=== PATIENT | female | born 1945 | race Caucasian/White ===

== ENCOUNTER → 2024-03-13 | Outpatient (CLI) | payer MEDICARE, BC, SELFPAY ==
[2024-03-13 10:19] LABS: Basophils % (Auto) 0 % (0-2.5); Eosinophils # (Auto) 0.1 Thou/mm3 (0.0-0.5); Eosinophils % (Auto) 2 % (0-10); Hematocrit 40.1 % (36.0-46.0); Hemoglobin 13.7 g/dL (12.0-16.0); Immature Granulocytes % (Auto) 0 % (0-0); Immature Granulocytes Auto 0.03 Thou/mm3 (0.00-0.00); Lymphocytes # (Auto) 2.3 Thou/mm3 (1.0-4.8); Lymphocytes % (Auto) 32 % (10-50); Mean Corpuscular HGB Conc 34.2 g/dl (31.0-37.0); Mean Corpuscular Hemoglobin 32.4 pg (25.0-35.0); Mean Corpuscular Volume 95 fL (80-100); Monocytes # (Auto) 0.6 Thou/mm3 (0.0-0.8); Monocytes % (Auto) 8 % (0-12); Neutrophils # (Auto) 4.2 Thou/mm3 (1.8-7.7); Neutrophils % (Auto) 59 % (37-80); Nucleated Red Blood Cell % 0 /100 WBC (0); Platelet Count 172 Thou/mm3 (140-440); RDW Standard Deviation 46.1 fL (36.4-46.3); Red Blood Count 4.23 Miln/mm3 (4.00-5.20); White Blood Count 7.2 Thou/mm3 (3.6-11.0)
[2024-03-13 10:59] LABS: Vitamin B12 704 pg/mL (211-911); Vitamin D 25 Hydroxy Total 51.3 ng/mL (7.3-40.2)
[2024-03-13 11:04] LABS: Alanine Aminotransferase 22 U/L (10-49); Albumin, Serum 4.6 gm/dL (3.4-4.8); Albumin/Globulin Ratio 1.9 (1.2-2.2); Alkaline Phosphatase 128 U/L (46-116); Anion Gap 5 (7-16); Aspartate Amino Transferase 19 U/L (0-34); BUN/Creatinine Ratio 16 Ratio (12-20); Bilirubin,Total 0.6 mg/dL (0.3-1.2); Blood Urea Nitrogen 13 mg/dL (9-23); Calcium 9.6 mg/dL (8.3-10.6); Calcium (Corrected) 9.6 mg/dL (8.5-10.1); Carbon Dioxide 29.6 mMol/L (20.0-31.0); Cardiac Risk Estimate 3.7 RATIO (3.7-5.6); Chloride 105 mMol/L (98-107); Cholesterol 198 mg/dL (132-200); Creatinine (Component) 0.8 mg/dL (0.6-1.3); Globulin 2.4 gm/dL (2.3-3.5); Glucose 94 mg/dL (74-106); HDL Cholesterol 53 mg/dL (40-60); LDL Cholesterol,Calculated 117 mg/dL (0-130); Osmolality,Calculated 279 (275-295); Potassium 3.7 mMol/L (3.4-5.1); Sodium 140 mMol/L (136-145); Thyroid Stimulating Hormone 2.71 uIU/mL (0.55-4.78); Triglycerides 141 mg/dL (30-150); eGFR > 60 See Note
[2024-03-13 11:19] LABS: Collection Type, Urine Clean Catch
[2024-03-13 11:48] LABS: Bilirubin,Urine Negative (Negative); Blood,Urine Negative (Negative); Clarity,Urine Clear (Clear/Hazy); Color,Urine Lt-Yellow (Lt Yel-Yel); Culture Indicated,Urine Not Indicated; Glucose, Urine Negative (Negative); Ketones,Urine Negative (Negative); Leukocyte Esterase,Urine Negative (Negative); Nitrite,Urine Negative (Negative); Protein,Urine Negative (Neg - Trace); RBC,Urine 1 /hpf (0-3); Specific Gravity,Urine 1.013 (1.001-1.035); Squamous Epithelial Cell,Urine 1 /hpf (0-5); Urobilinogen,Urine Negative mg/dL (0.0-1.0); WBC,Urine 1 /hpf (0-5)
== END | disposition home or self-care (01) ==
LOC: COPL 09:44
PROVIDERS: PCP Family Medicine; Referring Provider Physician Assistant; Visit Provider Physician Assistant
DX: E03.9 Hypothyroidism, unspecified (principal); I10 Essential (primary) hypertension; E78.5 Hyperlipidemia, unspecified; E55.9 Vitamin D deficiency, unspecified
CPT/HCPCS: 36415; 80053; 80061; 81001; 82306; 82607; 84443; 85025

== ENCOUNTER → 2024-03-14 | Outpatient (CLI) | payer MEDICARE, BC, SELFPAY ==
[2024-03-19 06:54] LABS: Fecal Globin Result NOT DETECTED (NOT DETECTED)
== END | disposition home or self-care (01) ==
LOC: SLDO 09:55
PROVIDERS: PCP Physician Assistant; Referring Provider Physician Assistant; Visit Provider Physician Assistant
DX: E03.9 Hypothyroidism, unspecified (principal); I10 Essential (primary) hypertension; E78.5 Hyperlipidemia, unspecified; E55.9 Vitamin D deficiency, unspecified
CPT/HCPCS: 82274; G0328

== ENCOUNTER → 2024-04-03 | Outpatient (CLI) | payer MEDICARE, BC, SELFPAY ==
--- NOTE | 2024-04-03 10:35 | XR_ITS ---
Examination: Lumbar spine, 5 views Technique: Lumbar spine AP, lateral, coned lateral lower lumbar spine, bilateral obliques 5 views Exam date and time: April 03, 2024 1059 hrs. Comparison May 05, 2017 Indications: Low back pain radiating to the right hip beginning one week ago Findings: Lumbar dextroscoliosis 15 degrees Significant osteopenia Total right hip arthroplasty partly visualized satisfactory alignment Diffuse advanced facet arthropathy No lumbar fracture Diffuse lumbar degenerative disc disease advanced L4-L5 No spondylolisthesis Impression: Lumbar dextroscoliosis 15 degrees Diffuse lumbar degenerative disc disease, advanced L4-L5
--- NOTE | 2024-04-03 10:35 | XR_ITS ---
Examination:Right hip AP, lateral, AP pelvis 3 views Technique: Hip AP lateral, AP pelvis, 3 views Exam date and time:April 03, 2024 1059 hrs. Comparison May 05, 2017 Indications: Right hip and lower back pain beginning one week ago. Findings: Total right hip arthroplasty Satisfactory alignment No loosening of the prosthetic components No prosthetic hip dislocation Mild left hip osteoarthritis Bones of the pelvis intact Impression: Total right hip arthroplasty with satisfactory alignment
== END | disposition home or self-care (01) ==
LOC: CDIM 10:22
PROVIDERS: PCP Family Medicine; Referring Provider Physician Assistant; Visit Provider Physician Assistant
DX: M41.86 Other forms of scoliosis, lumbar region (principal); M51.369 Other intervertebral disc degeneration, lumbar region without mention of lumbar back pain or lower extremity pain; Z96.641 Presence of right artificial hip joint
CPT/HCPCS: 72110; 73502

== ENCOUNTER → 2024-04-16 | Outpatient (CLI) | payer MEDICARE, BC, SELFPAY ==
--- NOTE | 2024-04-16 09:00 | XR_ITS ---
Examination: Breast ultrasound complete, bilateral Date and time of exam: April 16, 2024 0925 hours INDICATIONS: History right breast stereotactic breast biopsy January 21, 2020, negative for carcinoma, yearly screening study, right breast sonogram April 13, 2023 12:00 nodule 6 x 5 mm Technique: Real-time grayscale ultrasonographic imaging bilateral breasts, including all 4 quadrants as well as nipple retroareolar and axillary regions. Findings: Right breast sonographic images 12:00 oval mass lobular margins circumscribed 8 x 4 x 7 mm Sonographic images left breast No cystic or solid mass IMPRESSION: BI-RADS Category 2: Benign findings
--- NOTE | 2024-04-16 10:00 | XR_ITS ---
Examination: Screening digital mammography, bilateral Computer aided detection 3-D breast Tomosynthesis, bilateral Date and time of exam: April 16, 2024 0944 hours Compared to mammograms dating to January 14, 2020 Indication: Screening Technique: Nonmagnified MLO, CC views of the breasts to been obtained, reconstructed from 3-D Tomosynthesis images. R2 computer aided detection program utilized for evaluation of suspicious masses and/or abnormal calcifications. 3-D Tomosynthesis images obtained. Findings: The breasts are heterogeneously dense, which may obscure small masses Bilateral skin lesions Benign calcifications 6 mm focal asymmetry 12:00 position right breast anterior depth Impression: BI-RADS Category 0: Incomplete: Need additional imaging evaluation 6 mm focal asymmetry 12:00 position right breast anterior depth, recommend follow-up spot tomographic views of this asymmetry Recommend bilateral breast sonography follow-up to complete the workup
== END | disposition home or self-care (01) ==
LOC: CDIM 09:03
PROVIDERS: PCP Family Medicine; Referring Provider Physician Assistant; Visit Provider Physician Assistant
DX: Z12.31 Encounter for screening mammogram for malignant neoplasm of breast (principal); N64.89 Other specified disorders of breast
CPT/HCPCS: 76641; 77063; 77067

== ENCOUNTER → 2024-04-16 | Outpatient (CLI) | payer MEDICARE, BC, SELFPAY ==
--- NOTE | 2024-04-16 17:02 | XR_ITS ---
Examination: MRI lumbar spine without contrast Date and time of exam: April 16, 2024 1755 hours Comparison May 18, 2019 INDICATIONS: Low back pain 10 years worse beginning March 17, 2024 Technique: Multiple MRI axial and sagittal sections lumbar spine. Sagittal T2-weighted images, TR 3500, TE 118 T1 weighted transverse sections, TR 688 T8.5, T2-weighted sagittal sections T1 weighted sagittal sections TR 621, TE 30 T2 axial sections, TR 4, 190, TE 84. Findings: Statistician Applied film upper lumbar dextroscoliosis 15 degrees short angle lower lumbar scoliosis 15 degrees Advanced disc narrowing L4-L5 Adequate marrow signal lumbar vertebral bodies Diffuse lumbar disc desiccation L5-S1 3 mm right paracentral disc bulge L4-L5 7 mm central lumbar disc bulge extending to the right foraminal region with moderate right L4 ganglionic compression L3-L4 foraminal disc bulges but no ganglionic compression L2-L3 no disc protrusion L1-L2 3 mm right paracentral disc bulge IMPRESSION: Scoliosis as above L5-S1 3 mm right paracentral disc bulge L4-L5 7 mm central lumbar disc bulge extending to the right foraminal region with moderate right L4 ganglionic compression L1-L2 3 mm right paracentral disc bulge
== END | disposition home or self-care (01) ==
LOC: SMRI 16:46
PROVIDERS: PCP Family Medicine; Referring Provider Physician Assistant; Visit Provider Orthopaedic Surgery Orthopaedic Surgery of the Spine
DX: M41.86 Other forms of scoliosis, lumbar region (principal); M41.87 Other forms of scoliosis, lumbosacral region; G95.20 Unspecified cord compression
CPT/HCPCS: 72148

== ENCOUNTER → 2024-04-18 | Outpatient (CLI) | payer MEDICARE, BC, SELFPAY ==
--- NOTE | 2024-04-18 08:00 | XR_ITS ---
Examination: Diagnostic digital mammography, unilateral, right Computer aided detection 3-D breast Tomosynthesis, unilateral Date and time of exam: April 18, 2024 0749 hours INDICATIONS: Mammogram April 16, 2024 6 mm focal asymmetry 12:00 position right breast anterior depth Technique: Nonmagnified MLO, CC views of the right breast have been obtained, reconstructed from 3-D Tomosynthesis images. R2 computer aided detection program utilized for evaluation of suspicious masses and/or abnormal calcifications. 3-D Tomosynthesis images obtained. Findings: The breast is heterogeneously dense, which may obscure small masses 5 mm nodule upper right breast on the MLO view circumscribed Impression: BI-RADS category 3: Probably benign findings Recommend 1 additional 6 month right mammogram follow-up to document stability of 5 mm nodule upper right breast MLO view
== END | disposition home or self-care (01) ==
PROVIDERS: Referring Provider Physician Assistant; Visit Provider Physician Assistant
DX: N63.10 Unspecified lump in the right breast, unspecified quadrant (principal)
CPT/HCPCS: 77061; 77065; G0279

== ENCOUNTER → 2024-07-27 | Outpatient (CLI) | payer MEDICARE, BC, SELFPAY ==
--- NOTE | 2024-07-27 13:30 | XR_ITS ---
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
[2024-07-27 14:32] LABS: Free T4 (Free Thyroxine) 1.59 ng/dL (0.89-1.76); Thyroid Stimulating Hormone 1.19 uIU/mL (0.55-4.78)
== END | disposition home or self-care (01) ==
LOC: CDIM 13:07
PROVIDERS: PCP Family Medicine; Referring Provider Internal Medicine Endocrinology, Diabetes & Metabolism; Visit Provider Internal Medicine Endocrinology, Diabetes & Metabolism
DX: E04.1 Nontoxic single thyroid nodule (principal); E06.3 Autoimmune thyroiditis
CPT/HCPCS: 36415; 76536; 84439; 84443

== ENCOUNTER → 2024-11-15 | Outpatient (CLI) | payer MEDICARE, BC, SELFPAY ==
--- NOTE | 2024-11-15 11:30 | XR_ITS ---
Examination: Diagnostic digital mammography, unilateral, right Computer aided detection 3-D breast Tomosynthesis, unilateral Date and time of exam: November 15, 2024 1104 hours INDICATIONS: Mammogram April 18, 2024 5 mm nodule upper right breast on the MLO view Technique: Nonmagnified MLO, CC views of the right breast have been obtained, reconstructed from 3-D Tomosynthesis images. R2 computer aided detection program utilized for evaluation of suspicious masses and/or abnormal calcifications. 3-D Tomosynthesis images obtained. Findings: The breast is heterogeneously dense, which may obscure small masses On this study there is architectural distortion in the inner lower right breast measuring at least 20 mm Impression: BI-RADS category 0: Incomplete: Need additional imaging evaluation Recommend follow-up spot tomographic views centered more toward the inferior lower right breast, not included on the current spot compression views as well as right breast sonography to complete the workup
== END | disposition home or self-care (01) ==
LOC: CDIM 10:55
PROVIDERS: Referring Provider Physician Assistant; Visit Provider Physician Assistant
DX: R92.8 Other abnormal and inconclusive findings on diagnostic imaging of breast (principal)
CPT/HCPCS: 77061; 77065; G0279

== ENCOUNTER → 2024-12-11 | Outpatient (CLI) | payer MEDICARE, BC, SELFPAY ==
--- NOTE | 2024-12-11 13:00 | XR_ITS ---
Examination: Breast ultrasound, unilateral, right Date and time of exam: December 11, 2024 1344 hours INDICATIONS: Mammogram November 15, 2024 architectural distortion inner lower right breast, 20 mm Technique: Real-time shahid scale ultrasonographic imaging performed right breast including all 4 quadrants as well as nipple retroareolar and axillary region. Findings: 12:00 nodule lobular margins 10 x 5 mm IMPRESSION: BI-RADS Category 3: Probably benign findings One additional 6 month right breast sonogram follow-up is needed to document stability of 12:00 nodule described above
--- NOTE | 2024-12-11 13:30 | XR_ITS ---
Examination: Diagnostic digital mammography, unilateral, right Computer aided detection 3-D breast Tomosynthesis, unilateral Date and time of exam: December 11, 2024 1557 hours INDICATIONS: Mammogram November 15, 2024 architectural distortion inner lower right breast Technique: Nonmagnified MLO, CC views of the right breast have been obtained, reconstructed from 3-D Tomosynthesis images. R2 computer aided detection program utilized for evaluation of suspicious masses and/or abnormal calcifications. 3-D Tomosynthesis images obtained. Findings: The breast is heterogeneously dense, which may obscure small masses Focal asymmetry does remain inner right breast on the spot compression views Impression: BI-RADS category 3: Probably benign findings One additional 6 month right mammogram follow-up is needed to document stability of focal asymmetry inner right breast on the spot compression CC view
== END | disposition home or self-care (01) ==
LOC: CDIM 13:16
PROVIDERS: PCP Family Medicine; Referring Provider Family Medicine; Visit Provider Family Medicine
DX: R92.331 Mammographic heterogeneous density, right breast (principal); N64.89 Other specified disorders of breast; N63.15 Unspecified lump in the right breast, overlapping quadrants
CPT/HCPCS: 76641; 77061; 77065; G0279

== ENCOUNTER 2025-01-28 22:41 | Inpatient (IN) | payer MEDICARE, BC, SELFPAY ==
[2025-01-28 22:42] VITALS: BMI 31.6
--- NOTE | 2025-01-28 22:48 | EKG_ITS ---
[facility] Test Date: 2025-01-28 Pat Name: MONSE BLANCHARD Department: Room: - Gender: Female Heel Breaster: : 1945 Requested By: ED Temporary Provider Order Number: [id number] Reading MD: ED Temporary Provider Measurements Intervals [place] Rate: 82 P: 63 UT: 165 QRS: 16 QRSD: 94 T: 75 QT: 362 QTc: 425 Interpretive Statements SINUS RHYTHM WITH OCCASIONAL VENTRICULAR PREMATURE COMPLEXES POSSIBLE LEFT ATRIAL ENLARGEMENT [-0.1mV P-WAVE IN V1/V2] NONSPECIFIC ST & T-WAVE ABNORMALITY No previous ECG available for comparison /store/S0/[id number]/ecg/[id number].pdf
[2025-01-28 22:56] VITALS: BP 205/125; PULSE 88; RESP 17; TEMP 36.7; O2SAT 96
--- NOTE | 2025-01-28 23:15 | XR_ITS ---
EXAMINATION: AP chest single view TECHNIQUE: AP portable upright chest single view Date and time: January 29, 2025, 0004 hours, comparison [facility] 2019 INDICATIONS: Stroke alert, today FINDINGS: Accentuation of basilar bronchovascular markings No aspiration pneumonia Stable nodule left midlung compared to June 01, 2019 Mild prominence left ventricle No pulmonary edema Prominent osteopenia IMPRESSION: Basilar bronchitis pattern Negative for aspiration pneumonia
--- NOTE | 2025-01-28 23:15 | PD.EDNEURO ---
Neuro Symptoms Deficit-RME/HPI General Chief Complaint: Neuro Symptoms/Deficit Stated Complaint: RIGHT SIDE WEAKNESS Time Seen by Provider: 01/28/25 23:15 Arrival date/time: 01/28/25 22:41 RME / HPI RME / HPI Narrative: DR. LEARY MAIN ED EVALUATION: 79 y/o female presenting with episodic right UE/LE wekaness lasting 30-60 minutes, initial episode at 3:30 PM today and most recent episode just MORTGAGE ADVISOR. Denies any associated visual disturbance, confusion, arthralgia or LANGFORD. No antecedent illness. No previous symptoms. No modifying factors. PMH: PVC's, HTN, and Hypothyrodism PSH: Orthopedic Sx of right hip, BL knees, and benign right renal mass excision Allergies: None Social: Non-smoker, Non-drinker, No illicit drug use Related Data Home Medications ?Medication ?Instructions ?Recorded ?Confirmed hydrochlorothiazide 12.5 mg tablet 12.5 mg PO QDAY 07/04/18 01/18/20 fluticasone furoate 100 1 inh inhalation QDAY 01/18/20 01/18/20 mcg-vilanterol 25 mcg/dose inhalation powder levothyroxine 100 mcg tablet 100 mcg PO QDAY 01/18/20 01/18/20 (Synthroid) lisinopril 5 mg tablet 5 mg PO QDAY 01/18/20 01/18/20 Allergies Allergy/AdvReac Type Severity Reaction Status Date / Time NKA* Allergy Uncoded 01/28/25 23:11 Review of Systems Review of Systems Systems Reviewed: All systems reviewed, normal except as documented Past Medical History Past Medical History CARDIAC: Positive Hypertension ENDOCRINE: Positive Hypothyroidism ED Exam Narrative Physical exam: GEN. APPEARANCE: The patient is alert awake oriented X-3 under no distress, lying down comfortably, does not look ill/toxic. Patient has good eye contact. Patient is cooperative. NIH score 0, GCS 15, notably hypertensive. VITALS: All vitals were reviewed and the pulse ox is 98%, which is normal according to my interpretation HEENT: Normocephalic, atraumatic and nontender. Pupils are equal and reactive. Oral mucosa is moist. NECK: Supple, nontender, no meningismus, no JVD. There is no thyromegaly and no lymphadenopathy. CHEST: Nontender on palpation no deformity and no crepitus. CARDIOVASCULAR: Heart regular rhythm, no murmur or gallop rub or extra beats. LUNGS: Clear to auscultation bilaterally with symmetrical chest rise. No laboring tachypnea or wheezing. No intercostal subcostal retraction. No rales and no rhonchi. ABDOMEN: Soft, flat, nontender to palpation, no guarding or rebound tenderness. There are no abnormal masses palpated. No pulsatile masses or bruits. Active and normal bowel sounds. EXTREMITIES: Normal inspection and palpation. No edema. No cyanosis. Patient is able to move all 4 extremities well SKIN: Warm and dry, no rashes noted. MUSCULOSKELETAL: No lumbar or midline bony tenderness. There is no CVA tenderness. No paraspinal muscle spasm or tenderness. NEURO: Cranial nerves II through XII grossly intact. There are no focal neurologic deficits noted. GCS is 15. Normal finger to nose, visual monsalve intact, gait not observed. PSYCHIATRIC: Patient is in normal mood and affect, cooperative. LYMPHATICS: No major lymphadenopathy noted. Course Quality Measures none Orders Category Date Time Status Bedside Blood Glucose NOW Care 01/28/25 23:[address] Screening NOW Care 01/28/25 23:21 Active Lead Performance Support Analyst NOW Care 01/28/25 23:15 Active Continuous Pulse Oximetry NOW Care 01/28/25 23:15 Completed EKG (ED ONLY) *Do not use* NOW Care 01/28/25 22:49 Completed EKG (ED ONLY) *Do not use* NOW Care 01/28/25 23:15 Completed Fingerstick [Bedside Blood Glucose] NOW Care 01/28/25 22:49 Active In and Out Catheter NEEDED Care 01/28/25 23:15 Active Insert IV NOW Care 01/28/25 22:59 Active Insert IV NOW Care 01/28/25 23:15 Completed NIH Stroke Scale now Care 01/28/25 23:15 Completed NPO NOW Care 01/28/25 23:15 Active Neuro Check Q1HR Care 01/28/25 23:16 Active Nurse Swallow Screen x1 Care 01/28/25 23:15 Active Consult to Neurology / Tele-Neurology Routine Cons 01/28/25 23:[address] angio carotid w head w Stat Exams 01/28/25 23:[address] head/brain wo con Stat Exams 01/28/25 23:21 Completed EKG (ED Only) Stat Exams 01/28/25 22:48 Draft EKG (ED Only) Stat Exams 01/28/25 23:15 Ordered XR chest 1V portable Stat Exams 01/28/25 23:15 Taken CBC Stat Lab 01/28/25 23:20 Completed Comprehensive Metabolic Panel Stat Lab 01/28/25 23:20 Completed Drug Screen,Urine Stat Lab 01/28/25 23:38 Completed Magnesium Stat Lab 01/28/25 23:20 Completed Partial Thromboplastin Time Stat Lab 01/28/25 23:20 Completed Prothrombin Time with INR Stat Lab 01/28/25 23:20 Completed Troponin I Stat Lab 01/28/25 23:20 Completed Urinalysis, C/S if Indicated Stat Lab 01/28/25 23:38 Completed Aspirin Med 01/29/25 02:07 Discontinued 325 mg PO X1 ONE Labetalol IV [Trandate IV] Med 01/28/25 23:15 Discontinued 10 mg IVP Q15M PRN Labetalol IV [Trandate IV] Med 01/28/25 23:10 Discontinued 10 mg IVP X1 ONE Ondansetron Inj [Zofran Inj] Med 01/28/25 23:15 Active 4 mg IVP Q4HR PRN Sodium Chloride 0.9% 1000 ml [Ns] 1,000 ml Med 01/28/25 23:15 Active IV .Q10H hydrALAZINE INJ [Apresoline Inj] Med 01/29/25 02:08 Discontinued 10 mg IVP X1 ONE Oxygen Delivery NOW RT 01/28/25 23:15 Active Vital Signs Vital signs: Vital Signs Temperature 98.1 F 01/28/25 22:56 Pulse Rate 88 01/28/25 22:56 Respiratory Rate 17 01/28/25 22:56 Blood Pressure 205/125 H 01/28/25 22:56 Pulse Oximetry (%) 96 01/28/25 22:56 Oxygen Delivery Method Room Air 01/28/25 22:56 Neuro Symptoms / Deficit MDM Narrative MDM Narrative:: Scribe Attestation: ITanesha am scribing for and in the presence of Dr. Leary. Provider Notation: Although this document has been carefully reviewed, there may still be some phonetic and other typographical errors. These errors are purely grammatical due to imperfections in the software program and should not be construed in any way to compromise the substance of the patient's medical care during this visit. 79 y/o female presenting with episodic right UE/LE wekaness lasting 30-60 minutes, initial episode at 3:30 PM today and most recent episode just MORTGAGE ADVISOR. Denies any associated visual disturbance, confusion, arthralgia or LANGFORD. Please see PE findings. Laboratory markers, including CBC and serum chemistries, demonstrate WBC of 10.7, no anemia or thrombocytopenia. Serum chemistries were essentially unremarkable. UA without evidence of infection. Toxicology was positive for opiates. Placed on hebrew teacher, patient was entered into stroke protocol, IV hypertensive therapy, upon return from scanner patient remained neurologically unchanged. 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 Administered full dose ASA. Patient will be admitted to hospital service for further evalutation and treatment. Patient data External records reviewed:: [facility] previous records (No prior ED records available for review) Clinical information provided by:: patient Social determinants that could affect healthcare access:: none Patient has the following chronic illnesses:: Hypertension, Hypothyroidism How is presenting disease/condition affected by chronic disease/condition?: exacerbated by Evaluation data The following diagnostics were reviewed and interpreted by me:: lab results, radiology exam(s) and EKG tracing(s) (EKG demonstrates sinus rhythm with ventricular rate of [address] segment changes, with occasional PVC's, axis leftward, and intervals are normal, per my interpretation.) Lab and/or radiology exams considered but not ordered:: None Interpretation Summary: RADIOLOGY Head/Neck CTA: Findings: No significant common carotid carotid bifurcation or internal carotid artery stenoses Mildly dominant left vertebral artery, 80% stenosis proximal right vertebral artery axial image 190 Intracranial vertebral arteries, basilar artery posterior cerebral branches fill with no large vessel occlusions Petrous juxtasellar portions internal carotid arteries fill No large vessel occlusions involving M1 segments middle cerebral arteries middle cerebral artery trifurcation vessels or anterior cerebral arteries IMPRESSION: No significant carotid arterial stenoses in the neck Suspicion for 80% stenosis proximal right vertebral artery, consider carotid vertebral Doppler sonography follow-up to assess for retrograde flow in the right vertebral artery No cerebral large vessel arterial occlusions or thrombus Head/Brain CT: Findings: No significant ventricular enlargement. 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 No mass effect or midline shift Basal cisterns are not remarkable. Fourth ventricle is midline. Cranial vault intact. Impression: Negative for acute hemorrhage, mass effect or midline shift Left basal ganglia infarct, which may be old, clinical correlation advised As clinically warranted, brain MRI follow-up would best assess for acute ischemic change Chest X-Ray: Pending official radiology report. Medications / Prescriptions Medications or Prescriptions considered but not ordered:: None Medication administrations:: Medication Administration History Sodium Chloride (Ns) 1,000 mls @ 100 mls/hr IV .Q10H HUGO Stop: 02/27/25 23:14 Last Admin: 01/29/25 00:04 Dose: 100 mls/hr Documented By: AL Ondansetron HCl (Ondansetron Inj 2 Mg/Ml Inj 2 Ml) 4 mg IVP Q4HR PRN PRN Reason: NAUSEA OR VOMITING Stop: 02/27/25 23:14 Discontinued Medications Aspirin (Aspirin 325 Mg Tablet) 325 mg PO X1 ONE Stop: 01/29/25 02:08 Last Admin: 01/29/25 02:13 Dose: 325 mg Documented By: AL Hydralazine HCl (Hydralazine Inj 20 Mg/Ml Vial) 10 mg IVP X1 ONE Stop: 01/29/25 02:09 Last Admin: 01/29/25 02:13 Dose: 10 mg Documented By: AL Labetalol HCl (Labetalol Inj 5 Mg/Ml Vial 20 Ml) 10 mg IVP X1 ONE Stop: 01/28/25 23:11 Last Admin: 01/29/25 00:04 Dose: 10 mg Documented By: AL Labetalol HCl (Labetalol Inj 5 Mg/Ml Vial 20 Ml) 10 mg IVP Q15M PRN PRN Reason: HYPER See above if any Consultations Consultation(s) initiated? (list below): Yes Consultation #1 (Physician, Specialty, Details): Discussed with Hospitalist for admission. Reviewed the patient?s HPI, PMHx, lab and/or radiology results. Discussed treatment plan. Will accept patient for admission. Time: 02:29 Diagnosis Neuro Differential Diagnosis: convulsions, delirium, subarachnoid hemorrhage, peripheral neuropathy, cerebrovascular accident, multiple sclerosis and transient cerebral ischemia Most likely diagnosis given after review of the tests above:: Stuttering TIA Admission Indicated Admission indicated?: indicated Explain why admission is indicated or not indicated:: Stuttering TIA Admission Request Was there a request for admission?: Yes Admission Attestation Admission request attestation: Discussed case with [] from Hospitalist service regarding admission. Discussed patients ED course, exam findings, labs, and radiology results. The Hospitalist [agrees,declines] to accept the patient for admission. Disposition Plan Disposition Plan: Admit Critical Care Time Critical Care Time Critical Care Time: Yes Total Critical Care Time (min.): 45 Attestation: The high probability of sudden, clinically significant deterioration in the patient?s condition required the highest level of my preparedness to intervene urgently. The services I provided to this patient were to treat and/or prevent clinically significant deterioration. Services included the following: chart data review, reviewing nursing notes and/or old charts, documentation time, forestry consultant collaboration regarding findings and treatment options, medication orders and management, direct patient care, vital sign assessments and ordering, interpreting and reviewing diagnostic studies and lab tests. Aggregate critical care time includes only time during which I was engaged in work directly related to the patient?s care, as described above, whether at bedside or elsewhere in the Emergency Department. It did not include time spent performing other reported procedures or the services of residents, students, nurses or physician assistants. Discharge Plan Plan Patient Disposition: Admit Acute Care w/in Hospital Prescriptions/Referrals Prescriptions/Med Rec: No Action hydrochlorothiazide 12.5 mg tablet 12.5 mg PO QDAY levothyroxine [Synthroid] 100 mcg Tablet 100 mcg PO QDAY lisinopril 5 mg Tablet 5 mg PO QDAY fluticasone furoate-vilanterol 100-25 mcg/dose Blister With Device 1 inh INHALATION QDAY Problem List Clinical Impression: TIA (transient ischemic attack) Patient/Caregiver Discharge Instructions Print Language: Nepali Stand Alone Forms: Ivette Award Info., Patient Portal Info Letter
[2025-01-28 23:18] VITALS: PULSE 79; RESP 17; RESP 95
--- NOTE | 2025-01-28 23:21 | XR_ITS ---
Examination: CTA carotids with intravenous contrast CTA brain, head with intravenous contrast. 2-D sagittal, coronal reconstructions. 3-D reconstructions. Exam date and time: January 28, 2025, 11:40 p.m. INDICATIONS: Onset right-sided body weakness today CTDI: vol (mGy) 11.6 DLP: (mGycm) 439 Technique: Multiple CTA axial brain, head carotid images post intravenous contrast injection 75 cc, [id number]. 2-D sagittal, coronal reconstructions. 3-D reconstructions, 3-D post processing including vascular maximum intensity projection images. Low dose protocols were performed. One or more of the following dose reduction techniques were used; automated exposure control, adjustment of the mA and/or KV according to patient size, use of iterative reconstruction technique. Findings: No significant common carotid carotid bifurcation or internal carotid artery stenoses Mildly dominant left vertebral artery, 80% stenosis proximal right vertebral artery axial image 190 Intracranial vertebral arteries, basilar artery posterior cerebral branches fill with no large vessel occlusions Petrous juxtasellar portions internal carotid arteries fill No large vessel occlusions involving M1 segments middle cerebral arteries middle cerebral artery trifurcation vessels or anterior cerebral arteries IMPRESSION: No significant carotid arterial stenoses in the neck Suspicion for 80% stenosis proximal right vertebral artery, consider carotid vertebral Doppler sonography follow-up to assess for retrograde flow in the right vertebral artery No cerebral large vessel arterial occlusions or thrombus
--- NOTE | 2025-01-28 23:21 | XR_ITS ---
Examination: CT brain head without contrast. 2-D sagittal coronal reconstructions Date and time of exam: January 28, 2025 11:40 a.m. INDICATIONS: Onset right-sided body weakness beginning 1530 hours today CTDI: vol (mGy): 45.9 DLP: (mGycm): 862 Technique: Multiple CT axial sections of the brain have been obtained, 5 mm slice thickness. Contrast has not been administered. 2-D sagittal, coronal reconstructions have been obtained Low dose protocols were performed. One or more of the following dose reduction techniques were used; automated exposure control, adjustment of the mA and/or KV according to patient size, use of iterative reconstruction technique. Findings: No significant ventricular enlargement. 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 No mass effect or midline shift Basal cisterns are not remarkable. Fourth ventricle is midline. Cranial vault intact. Impression: Negative for acute hemorrhage, mass effect or midline shift Left basal ganglia infarct, which may be old, clinical correlation advised As clinically warranted, brain MRI follow-up would best assess for acute ischemic change
[2025-01-28 23:23] VITALS: PULSE 77
--- NOTE | 2025-01-28 23:25 | PC.NURSE ---
PT BROUGHT IN BY SISTER FOR NEW ONSET OF RIGHT SIDE WEAKNESS STARTING 01/28/2025 APPROX AT 1500. PT STATES SHE WAS LAYING IN HER RECLINER WHEN SHE WAS GOING TO GO TO RESTROOM AND DEVELOPED RIGHT ARM WEAKNESS. PT THE ATTEMPTED TO GET UP AND STATES HER RIGHT LEG WAS DRAGGING . THEN SHE HAD A SIMILAR EPISODE AROUND 1999. APPROX AT 2200 SHE CALLED SISTER TO TAKE HER TO ER. THIS RN COMPLETED NIHSS WITH PROVIDER AT BEDSIDE.
[2025-01-28 23:29] LABS: Basophils # (Auto) 0.0 Thou/mm3 (0.0-0.2); Basophils % (Auto) 0 % (0-2.5); Eosinophils # (Auto) 0.1 Thou/mm3 (0.0-0.5); Eosinophils % (Auto) 1 % (0-10); Hematocrit 43.7 % (36.0-46.0); Hemoglobin 15.3 g/dL (12.0-16.0); Immature Granulocytes Auto 0.05 Thou/mm3 (0.00-0.00); Lymphocytes # (Auto) 3.6 Thou/mm3 (1.0-4.8); Lymphocytes % (Auto) 34 % (10-50); Mean Corpuscular HGB Conc 35.0 g/dl (31.0-37.0); Mean Corpuscular Hemoglobin 33.0 pg (25.0-35.0); Mean Corpuscular Volume 94 fL (80-100); Monocytes # (Auto) 0.8 Thou/mm3 (0.0-0.8); Monocytes % (Auto) 8 % (0-12); Neutrophils # (Auto) 6.1 Thou/mm3 (1.8-7.7); Neutrophils % (Auto) 57 % (37-80); Nucleated Red Blood Cell # 0.00 Thou/mm3 (0.00-0.00); Nucleated Red Blood Cell % 0 /100 WBC (0); Platelet Count 242 Thou/mm3 (140-440); RDW Standard Deviation 44.8 fL (36.4-46.3); Red Blood Count 4.64 Miln/mm3 (4.00-5.20); White Blood Count 10.7 Thou/mm3 (3.6-11.0)
[2025-01-28 23:45] LABS: Alanine Aminotransferase 21 U/L (10-49); Albumin, Serum 4.8 gm/dL (3.4-4.8); Albumin/Globulin Ratio 2.1 (1.2-2.2); Alkaline Phosphatase 138 U/L (46-116); Anion Gap 11 (7-16); Aspartate Amino Transferase 19 U/L (0-34); BUN/Creatinine Ratio 19 Ratio (12-20); Bilirubin,Total 0.6 mg/dL (0.3-1.2); Blood Urea Nitrogen 17 mg/dL (9-23); Calcium 10.5 mg/dL (8.3-10.6); Calcium (Corrected) 10.5 mg/dL (8.5-10.1); Carbon Dioxide 29.7 mMol/L (20.0-31.0); Chloride 101 mMol/L (98-107); Creatinine (Component) 0.9 mg/dL (0.6-1.3); Estimated Creatinine Clearance 54.0 mL/min (>60); Globulin 2.3 gm/dL (2.3-3.5); Glucose 112 mg/dL (74-106); Magnesium 2.0 mg/dL (1.6-2.6); Osmolality,Calculated 285 (275-295); Potassium 3.4 mMol/L (3.4-5.1); Sodium 142 mMol/L (136-145); Total Protein 7.1 gm/dL (5.7-8.2); Troponin I < 0.020 ng/mL (0.0-0.045); eGFR > 60 See Note
[2025-01-29] VITALS (15 sets, daily range): BP systolic 160–226; BP diastolic 73–128; PULSE 64–83; RESP 14–95; TEMP 36.2–36.9; O2SAT 93–99; BMI 33.6
--- NOTE | 2025-01-29 | XR_ITS ---
Examinations: MRI Brain without intravenous contrast. MRI brain with intravenous contrast MRA brain with intravenous contrast. MRA brain without intravenous contrast MRA neck with intravenous contrast Date and time of exam: January 29, 2025, 0900 hours INDICATIONS: Stroke alert January 28, 2025, right sided upper and lower body weakness, dragging right foot Technique: Multiple axial and sagittal images of the brain have been obtained Siemens high-resolution 1.5 Ayla short bore scanner is utilized. Sagittal sections, T1-weighted, TR 500, TE 14 Axial sections proton density and T2-weighted, TR 3,000, TE 34, TR 3,000, TE 91 Inversion recovery axial images, TR 9,260, TE 111, TI 2,500 Diffusion weighted images, axial sections, TR 4,800, TE 128, B value 1,000 Axial sections, ADC map, TR 4,800, TE 128. Contrast images have been obtained post intravenous 20 cc Gadolinium. T1-weighted axial and coronal images post contrast have been obtained. Angiographic images of neck and brain are obtained pre and post contrast. 3-D post processing performed, including brain, extracranial neck arterial maximum intensity projections Findings: Sellaturcica is not enlarged. The optic chiasm and infundibular stalk are not remarkable. Prepontine and interpeduncular cisterns are not enlarged. No localized enlargement of the medulla or chester. Fourth ventricle and cerebellar tonsils normal in position. Subacute hemorrhage is not seen. Fourth ventricle is midline. Mass in the cerebellopontine angle region is not evident. 7th and 8th nerve complexes exhibits symmetry. Globes are symmetrical with no retro-orbital mass. Increased white matter signal prominent including bilateral old basal ganglia infarcts Diffusion-weighted images demonstrate equivocal focus of restricted diffusion in the brainstem medullary level axial image 2. Mass-effect upon the ventricular system is not identified. Abnormal contrast enhancement is not seen. MRA brain carotid images no significant carotid stenoses, no large vessel occlusions Impression: Equivocal focus of restricted diffusion in the brainstem medullary level, the appearance should be correlated with clinical assessment by neurology
[2025-01-29] MEDS: LABETALOL INJ 5 MG/ML VIAL 20 ML 10 MG IVP (00:04)
[2025-01-29] MEDS: SODIUM CHLORIDE 0.9% 1000 ML 1,000 ML 100 ML IV ×3 (00:04→22:13)
[2025-01-29 00:24] LABS: Collection Type, Urine Clean Catch
[2025-01-29 00:46] LABS: Amphetamine/Methamp Scrn,U Negative (Negative); Barbiturate Screen,Urine Negative (Negative); Benzodiazepines Screen,Urine Negative (Negative); Benzoylecgonine Screen, Ur Negative (Negative); Fentanyl Screen,Urine Negative (Negative); Opiate Screen,Urine Positive (Negative); THC Screen,Urine Negative (Negative)
[2025-01-29 00:51] LABS: Amorphous Crystals,Urine Present (Absent); Bilirubin,Urine Negative (Negative); Blood,Urine Negative (Negative); Clarity,Urine Turbid (Clear/Hazy); Color,Urine Lt-Yellow (Lt Yel-Yel); Culture Indicated,Urine Not Indicated; Glucose, Urine Negative (Negative); Ketones,Urine Negative (Negative); Leukocyte Esterase,Urine Negative (Negative); Nitrite,Urine Negative (Negative); PH,Urine 7.5 (5.0-7.0); Protein,Urine Negative (Neg - Trace); RBC,Urine 2 /hpf (0-3); Specific Gravity,Urine 1.015 (1.001-1.035); Squamous Epithelial Cell,Urine < 1 /hpf (0-5); Urobilinogen,Urine Negative mg/dL (0.0-1.0); WBC,Urine 1 /hpf (0-5)
[2025-01-29 01:47] LABS: INR 1.0 (0.9-1.3); Partial Thromboplastin Time 29.5 Seconds (22.0-36.0); Prothrombin Time 10.7 Seconds (9.0-12.2)
[2025-01-29] MEDS: hydrALAZINE INJ 20 MG/ML VIAL 10 MG IVP ×2 (02:13→03:45)
--- NOTE | 2025-01-29 03:41 | ECHO_ITS ---
Patient Info Name: Jade Hernandez Age: 79 years : 1945 Gender: Female Ht: 165 cm Wt: 86 kg BSA: 2.02 m2 BP: 168 / 77 mmHg HR: 77 bpm Exam Date: 01/29/2025 1:08 PM Admit Date: 01/29/2025 Site: [facility] Exam Room: [facility] Patient Status: I Exam Type: CA echo doppler complete Staff Ordering Physician: Junie Santiago Study Info Indications TIA work up - Contrast/Agitated Saline Contrast/Ag. Saline: Agitated Saline Amount: --- ml Left Ventricular Outflow Tract Name Value Normal LVOT 2D LVOT Diameter 1.9 cm LVOT Doppler LVOT Peak Velocity 132 cm/s LVOT Mean Gradient 3 mmHg LVOT VTI 29 cm LVOT VTI/AV VTI Ratio 0.7 LVOT Stroke Volume 83 ml Pulmonic Valve Name Value Normal PV Doppler PV Peak Velocity 119 cm/s PV Regurgitation Doppler VA Peak End Diastolic Velocity 151 cm/s Mitral Valve Name Value Normal MV Doppler MV Mean Gradient 2 mmHg MV Decel [place] 311 cm/s2 MV PHT 63 ms MV Area (PHT) 3.5 cm2 4.0-5.0 MV Area (Cont Eq VTI) 2.5 cm2 MV Diastolic Function MV E Peak Velocity 68 cm/s MV A Peak Velocity 134 cm/s MV E/A 0.5 MV Annular TDI MV Septal e' Velocity 5.8 cm/s MV E/e' (Septal) 11.8 MV Lateral e' Velocity 7.2 cm/s MV E/e' (Lateral) 9.5 MV e' Average 6.48 cm/s MV E/e' (Average) 10.6 Tricuspid Valve Name Value Normal TV Regurgitation Doppler TR Peak Velocity 277 cm/s Estimated PAP/RSVP RA Pressure 8 mmHg <=5 PA Systolic Pressure 39 mmHg <36 RV Systolic Pressure 39 mmHg <36 Aortic Valve Name Value Normal AV 2D/MM AV Cusp Sep (MM) 1.4 cm AV Doppler AV Peak Velocity 191 cm/s AV Mean Gradient 8 mmHg AV VTI 39 cm AV Area (Cont Eq VTI) 2.1 cm2 >=3.0 AV Area (Cont Eq Santiago) 2.0 cm2 AV DI (Santiago) 0.69 AV Regurgitation 2D LVOT Area 2.8 cm2 Ventricles Name Value Normal LV Dimensions 2D/MM IVS Diastolic Thickness (2D) 1.0 cm 0.6-0.9 LVID Diastole (2D) 4.5 cm 3.8-5.2 LVIW Diastolic Thickness (2D) 1.1 cm 0.6-0.9 LVID Systole (2D) 2.8 cm 2.2-3.5 LVOT Diameter 1.9 cm LV Mass (2D Cubed) 163.98 g 67.00-162.00 LV Mass Index (2D Cubed) 81 g/m2 43-95 Relative Wall Thickness (2D) 0.49 <=0.42 IVS/LVIW Diastolic Thickness (2D) 0.91 0.00-1.50 LV Fractional Shortening/Ejection Fraction 2D/MM LV Fractional Shortening (2D) 38 % 27-45 LV EF (2D Teichholz) 68 % Atria Name Value Normal LA Dimensions LA Volume (4C A-L) 81 ml LA Volume (BP A-L) 88 ml Left Ventricle Left ventricular chamber dimension is normal. Left ventricular systolic function is normal with visually estimated ejection fraction of 60-65%. There is mild concentric hypertrophy noted in the left ventricle. Left ventricular segmental wall motion is normal. The left ventricular diastolic function is grade I diastolic dysfunction. Right Ventricle Right ventricular chamber dimension is normal. Right ventricular systolic function is normal. Left Atrium Left atrial chamber dimension is mildly enlarged. Right Atrium Right atrial chamber dimension is normal. Aortic Valve The aortic valve is trileaflet. There is moderate aortic valve sclerosis. There is no aortic valve stenosis with a peak velocity of 191 cm/s, mean gradient of 8 mmHg, and aortic valve area of 2.1 cm2. There is trace aortic valve regurgitation. Pulmonic Valve The pulmonic valve is normal. There is no pulmonic valve stenosis. There is mild pulmonic regurgitation. Mitral Valve The mitral valve has calcified leaflets. There is no mitral valve stenosis. There is trace mitral valve regurgitation. Tricuspid Valve The tricuspid valve leaflets are normal. There is no significant tricuspid valve stenosis. There is mild tricuspid valve regurgitation. Mild pulmonary hypertension, estimated pulmonary arterial systolic pressure is 39 mmHg and systemic blood pressure of 168 mmHg in systole. Pericardium/Pleural The pericardium appears normal. There is no pericardial effusion. No pleural effusion visualized. Inferior Vena Cava Normal inferior vena cava with >50% collapse upon inspiration consistent with normal right atrial pressure, 8 mmHg. Aorta The aortic measurements are indexed to age and body surface area. The aortic root at the sinus of Valsalva is not well visualized. The prox ascending aorta is not well visualized. Summary 1. Bubble study negative for any PFO or ASD but suboptimal. Consider VERN if high index of clinical suspicion. 2. Left ventricle size is normal and systolic function is normal. Visually estimated ejection fraction is 60-65%. The diastolic function is grade I diastolic dysfunction. 3. Right ventricle size is normal and systolic function is normal. Estimated PASP is 39 mmHg. Mild pulmonary hypertension. 4. There is moderate aortic valve sclerosis with no stenosis and trace regurgitation. 5. There is tricuspid mild regurgitation. 6. There is no mitral valve stenosis and trace regurgitation. Report Signatures Finalized by Naif Brumfield on 01/29/2025 06:53 PM
--- NOTE | 2025-01-29 04:57 | PD.RESHP ---
Documentation for date of: 01/29/25 [facility] History of Present Illness History of present illness: Ms. Hernandez is an 79 y/o female with PMH hypothyroidism, HTN, PVCs, who presented to the ED on 01/28 after experiencing multiple episodes of right sided upper and lower extremity weakness x1 day. Patient was sitting at home when she noticed that she could not lift her right arm. When she stood up she noticed that her right foot was dragging as well. This lasted about 15 minutes. About 1-2 hours later this happened again, same symptoms, lasted <15 minutes. When she went to bed that night she experienced another episode that lasted ~ 1 hour which prompted her to seek medical attention. She has never experienced symptoms like this in the past. She takes her BP at home, systolic usually 140s. Patient denies any current symptoms now. Denies headache, acute changes in vision, n/v, changes in bowel movements, paresthesias, weakness, aphasia, dysarthria, dysphagia. Follows with Dr. Souza. Follows with Dr. Mednoza for thyroid. Patient was scheduled to get injections for lower back pain on Tuesday, back pain is severely limited her daily activities. Patient still drives and is able to perform all IADLs and ADLs. Uses walker for mobile stability 2/ ED course: BP 205/125 --> 226/98 --> 186/101. Labs significant for alk phos 138. UDS + opiates (takes 1/2 Bryan at home BID for chronic back pain). No stroke alert called as patient's symptoms resolved. CT head showed no acute hemorrhage, mass effect or midline shift. 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 CTA showed no LVO, no carotid stenosis. 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 CXR unremarkable. EKG NSR with PVCs, HR 82, QTc 425. Given labetalol 10 mg IV, 1L NS, ASA 325 mg PO, hydralazine 10 mg IV. 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 Drinks 1 glass of wine occasionally. 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 Does lots of gardening and taking care of her dogs. Her borther is ROXANNE, he is currently hunting in [facility]. FHx: none reported Review of Systems Review of Systems Narrative Review of Systems: 14 point ROS negative other than HPI Exam Vital Signs Temp Pulse Resp BP Pulse Ox O2 Del Method 98.2 F 73 17 183/73 H 96 Room Air 01/29/25 04:12 01/29/25 04:12 01/29/25 04:12 01/29/25 04:12 01/29/25 04:12 01/29/25 04:12 Narrative Exam General: No acute distress, well nourished Eye: PERRL, EOMI, normal conjunctiva, no scleral icterus HENT: Normocephalic, atraumatic, normal hearing, moist oral mucosa Neck: Supple, non-tender, no JVD, no lymphadenopathy Lungs: Clear to auscultation bilaterally, non-labored respirations, symmetric chest rise, no use of accessory muscles Heart: Normal S1 and S2, no S3 or S4 appreciated. Normal rate and regular rhythm, no murmurs, rubs gallops, or edema. Peripheral pulses intact bilaterally, capillary refill brisk distally Abdomen: Soft, non-tender, non-distended, normal bowel sounds. No guarding or rebound tenderness. Musculoskeletal: Normal range of motion and strength, no tenderness or swelling Skin: Skin is warm, dry, no rashes or lesions. Redness of b/l cheeks and forehead Psychiatric: Cooperative, appropriate mood and affect Neurologic: Mental status: Orientation: Oriented to person, place, time, and situation Communication: Patient is cooperative and can follow simple instructions Language: Speech fluent, normal rate and volume, comprehension intact Cranial nerves: CN II: Visual monsalve intact CN III: Pupils equal, round, and reactive to light CN III, IV, : No gaze deviation, no nystagmus Horizontal pursuit: intact Vertical pursuit: intact Ptosis: none CN V: Facial sensation to light touch intact bilaterally at the forehead, cheeks, and jaw line CN VII: Face symmetric, no facial droop appreciated CN VIII: Able to hear and respond to conversation at normal volume, intact to finger rub CN IX, X: Palate elevation symmetric, uvula midline CN XI: Head turn and shoulder shrug strong, symmetric bilaterally CN XII: Normal tongue protrusion without deviation, no fasciculations Motor: Normal bulk and tone No atrophy No abnormal movements or fasciculations Muscle strength: Shoulder abduction: R 5/5 L 5/5 Elbow flexion: R 5/5 L 5/5 Elbow extension: R 5/5 L 5/5 Hip flexion: R 5/5 L 5/5 Hip extension: R 5/5 L 5/5 Knee flexion: R 5/5 L 5/5 Knee extension: R 5/5 L 5/5 Sensory: RUE: Light touch intact LUE: Light touch intact RLE: Light touch intact LLE: Light touch intact Cerebellum: RUE: No dysmetria (finger to nose) LUE: No dysmetria (finger to nose) RLE: No dysmetria (heel to de la garza) LLE: No dysmetria (heel to de la garza) Results: Labs 01/29/25 04:57 01/29/25 04:57 Labs: Short CBC 01/28/25 Range/Units 23:20 WBC 10.7 (3.6-11.0) Thou/mm3 Hgb 15.3 (12.0-16.0) g/dL Hct 43.7 (36.0-46.0) % Plt Count 242 (140-440) Thou/mm3 BMP 01/28/25 23:20 Sodium 142 Potassium 3.4 Chloride 101 Carbon Dioxide 29.7 BUN 17 Creatinine 0.9 Glucose 112 H Calcium 10.5 Cardiac Enzymes 01/28/25 Range/Units 23:20 Troponin I < 0.020 (0.0-0.045) ng/mL Liver Function 01/28/25 Range/Units 23:20 Total Bilirubin 0.6 (0.3-1.2) mg/dL AST 19 (0-34) U/L ALT 21 (10-49) U/L Alkaline Phosphatase 138 H (46-116) U/L Albumin 4.8 (3.4-4.8) gm/dL Urine 01/28/25 Range/Units 23:38 Urine Color Lt-Yellow (Lt Yel-Yel) Urine Clarity Turbid A (Clear/Hazy) Urine pH 7.5 H (5.0-7.0) Ur Specific [place] 1.015 (1.001-1.035) Urine Protein Negative (Neg - Trace) Urine Glucose (UA) Negative (Negative) Quality Measures Quality Measures VTE prophylaxis Advance care planning discussed with:: patient Medications Home Medications and Allergies Home Medications ?Medication ?Instructions ?Recorded ?Confirmed ?Type hydrochlorothiazide 12.5 mg tablet 12.5 mg PO QDAY 07/04/18 01/29/25 History fluticasone furoate 100 1 inh inhalation QDAY 01/18/20 01/29/25 History mcg-vilanterol 25 mcg/dose inhalation powder levothyroxine 100 mcg tablet 100 mcg PO QDAY 01/18/20 01/29/25 History (Synthroid) acetaminophen 300 mg-codeine 30 mg 0.5 tab PO Q12H PRN back pain 01/29/25 01/29/25 History tablet losartan 100 mg tablet 100 mg PO QDAY 01/29/25 01/29/25 History Allergies Allergy/AdvReac Type Severity Reaction Status Date / Time No Known Allergies Allergy Unverified 01/29/25 06:13 Visit Medications Acetaminophen (Acetaminophen 325 Mg Tablet) 650 mg PO Q6H PRN PRN Reason: Fever >100.3 Stop: 02/28/25 03:40 Acetaminophen (Acetaminophen 325 Mg Tablet) 650 mg PO Q6H PRN PRN Reason: PAIN SCALE 1-3 (mild Stop: 02/28/25 03:40 Hydrocodone Bitart/Acetaminophen (Hydrocodone/Apap 5/325 Tablet) 1 tab PO Q6HR PRN PRN Reason: PAIN SCALE 4-6 (Moderate Stop: 02/03/25 03:40 Aspirin (Aspirin Ec 81 Mg Tabec) 81 mg PO QDAY [facility] Stop: 02/28/25 08:59 Atorvastatin Calcium (Atorvastatin Calcium 20 Mg Tablet) 80 mg PO HS HUGO Stop: 02/28/25 20:59 Heparin Sodium (Porcine) (Heparin Sod Inj 5000 Unit/Ml Vial) 5,000 unit SC Q8HR [facility] Stop: 02/12/25 05:59 Hydrochlorothiazide (Hydrochlorothiazide 12.5 Mg Capsule) 12.5 mg PO QDAY [facility] Stop: 02/28/25 08:59 Hydroxyzine HCl (Hydroxyzine Hcl 25 Mg Tablet) 25 mg PO X1 PRN PRN Reason: anxiety Stop: 02/28/25 04:52 Sodium Chloride (Ns) 1,000 mls @ 100 mls/hr IV .Q10H HUGO Stop: 02/27/25 23:14 Last Admin: 01/29/25 00:04 Dose: 100 mls/hr Levothyroxine Sodium (Levothyroxine Sodium 100 Mcg Tablet) 100 mcg PO ACBR [facility] Stop: 02/28/25 05:59 Lisinopril (Lisinopril 2.5 Mg Tablet) 5 mg PO QDAY HUGO Stop: 02/28/25 08:59 Ondansetron HCl (Ondansetron Inj 2 Mg/Ml Inj 2 Ml) 4 mg IVP Q4HR PRN PRN Reason: NAUSEA OR VOMITING Stop: 02/27/25 23:14 Ondansetron HCl (Ondansetron Inj 2 Mg/Ml Inj 2 Ml) 4 mg IVP Q6H PRN; Protocol PRN Reason: NAUSEA OR VOMITING Stop: 02/28/25 03:40 Discontinued Medications Aspirin (Aspirin 325 Mg Tablet) 325 mg PO X1 ONE Stop: 01/29/25 02:08 Last Admin: 01/29/25 02:13 Dose: 325 mg Buspirone HCl (Buspirone Hcl 5 Mg Tablet) 5 mg PO BID [facility] Stop: 02/28/25 08:59 Hydralazine HCl (Hydralazine Inj 20 Mg/Ml Vial) 10 mg IVP X1 ONE Stop: 01/29/25 02:09 Last Admin: 01/29/25 02:13 Dose: 10 mg Hydralazine HCl (Hydralazine Inj 20 Mg/Ml Vial) 10 mg IVP X1 ONE Stop: 01/29/25 03:39 Last Admin: 01/29/25 03:45 Dose: 10 mg Labetalol HCl (Labetalol Inj 5 Mg/Ml Vial 20 Ml) 10 mg IVP X1 ONE Stop: 01/28/25 23:11 Last Admin: 01/29/25 00:04 Dose: 10 mg Labetalol HCl (Labetalol Inj 5 Mg/Ml Vial 20 Ml) 10 mg IVP Q15M PRN PRN Reason: HYPER Assessment & Plan Plan Ms. Hernandez is an 79 y/o female with PMH hypothyroidism, HTN, PVCs, who presented to the ED on 01/28 after experiencing multiple episodes of right sided upper and lower extremity weakness x1 day. Admitted for TIA workup. #Right upper and lower extremity weakness - resolved #c/f TIA vs hypertensive emergency LKAW: 15:30 on 01/28 Inital BP: 205/125, MAP 151 EKG: NSR with PVCs, HR 82, QTc 425 Initial glucose: 112 UDS: + opiates (prescribed for lower back pain) A1C: pending Lipids: pending TSH: pending Troponin: negative CT head w/o: negative for acute hemorrhage, mass effect, midline shift. 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 CTA head/neck w/: no LVO, no carotid stenosis. 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 MRI/MRA w/ and w/o: pending TTE: pending Meds given: labetalol 10 mg IV, 1L NS, ASA 325 mg PO, hydralazine 10 mg IV. ED consulted tele neuro but has not been seen by tele neuro yet given stroke alert was not called Not candidate for tPA or thrombectomy given sx resolved Plan: - Aspirin 81 mg PO daily - Atorvastatin 80 mg PO daily - Neuro Checks q4h - Permissive HTN. Antihypertensives PRN if BP >220/120 or c/f end-organ damage/contraindications. Can give labetalol PO or IV or Vasotec IV with a goal of 15% reduction in BP during the first 24 hours. - Aspiration Precautions, Head of bed 30 degrees - Euglycemia and avoid Hyperthermia - Consulted neuro, appreciate recs - Refer PT, speech eval #Chronic low back pain Usually takes 1/2 Bryan BID. States that lidocaine patch and muscle relaxers do not help. Planning for injections on Tuesday, but can no longer make this appt given that she would need to be off antiplatelets for 5 days before injections Follows with pain specialists Plan: - Tylenol PRN, Bryan 5 q6h PRN #Hypertension Plan: - See above for permissive HTN parameters for 1st 24 hours - HCTZ 12.5 mg PO daily (home med) - Lisinopril 5 mg PO daily #Hypothyroidism Plan: - Levothyroxine 100 mcg PO daily (home med) #Asthma Home med: Brio Plan: - Albuterol PRN Checklist Dispo: Admit to tele for 14h neuro checks Diet: regular Bowel Reg: n/a VTE ppx: heparin subQ GI ppx: n/a Pain mgmt: Tylenol, Bryan PRN Code status: DNR/DNI Plan discussed with Dr. Berg and Dr. Maddy Santiago MD PGY1 Attending Provider Attestation/Addendum After examination of the patient and review of the clinical data I feel that this patient needs admission to the hospital for further treatment/evaluation. Plan of care discussed with patient and is in agreement. I Nalini Castañeda MD, attest that I was physically present for zepeda portions of evaluation, and examined patient, labs and imagings and plan of care were discussed with IM residents team, and I agree with the findings and plans documented above.
[2025-01-29 05:22] LABS: Basophils # (Auto) 0.0 Thou/mm3 (0.0-0.2); Basophils % (Auto) 0 % (0-2.5); Eosinophils # (Auto) 0.1 Thou/mm3 (0.0-0.5); Eosinophils % (Auto) 1 % (0-10); Hematocrit 43.2 % (36.0-46.0); Hemoglobin 15.0 g/dL (12.0-16.0); Immature Granulocytes Auto 0.04 Thou/mm3 (0.00-0.00); Lymphocytes # (Auto) 2.9 Thou/mm3 (1.0-4.8); Lymphocytes % (Auto) 29 % (10-50); Mean Corpuscular HGB Conc 34.7 g/dl (31.0-37.0); Mean Corpuscular Hemoglobin 32.9 pg (25.0-35.0); Mean Corpuscular Volume 95 fL (80-100); Monocytes # (Auto) 0.8 Thou/mm3 (0.0-0.8); Monocytes % (Auto) 7 % (0-12); Neutrophils # (Auto) 6.4 Thou/mm3 (1.8-7.7); Neutrophils % (Auto) 63 % (37-80); Nucleated Red Blood Cell # 0.00 Thou/mm3 (0.00-0.00); Nucleated Red Blood Cell % 0 /100 WBC (0); Platelet Count 242 Thou/mm3 (140-440); RDW Standard Deviation 45.3 fL (36.4-46.3); Red Blood Count 4.56 Miln/mm3 (4.00-5.20); White Blood Count 10.2 Thou/mm3 (3.6-11.0)
[2025-01-29 05:44] LABS: Anion Gap 13 (7-16); BUN/Creatinine Ratio 16 Ratio (12-20); Blood Urea Nitrogen 13 mg/dL (9-23); Calcium 9.8 mg/dL (8.3-10.6); Carbon Dioxide 26.4 mMol/L (20.0-31.0); Cardiac Risk Estimate 3.8 RATIO (3.7-5.6); Chloride 103 mMol/L (98-107); Cholesterol 235 mg/dL (132-200); Creatinine (Component) 0.8 mg/dL (0.6-1.3); Estimated Creatinine Clearance 60.8 mL/min (>60); Glucose 116 mg/dL (74-106); HDL Cholesterol 62 mg/dL (40-60); LDL Cholesterol,Calculated 144 mg/dL (0-130); Magnesium 1.9 mg/dL (1.6-2.6); Osmolality,Calculated 284 (275-295); Potassium 3.4 mMol/L (3.4-5.1); Sodium 142 mMol/L (136-145); Thyroid Stimulating Hormone 4.67 uIU/mL (0.55-4.78); Triglycerides 147 mg/dL (30-150); eGFR > 60 See Note
[2025-01-29 05:47] LABS: Glucose Estimated Average 105 mg/dL (80-131); Hemoglobin A1C 5.3 % Hgb (4.8-6.0)
[2025-01-29] MEDS: HEPARIN SOD INJ 5000 UNIT/ML VIAL SC ×3 (05:53→21:26)
--- NOTE | 2025-01-29 06:33 | PC.NURSE ---
DR US WAS NOTIFIED ABOUT NOT HAVING LEVOTHROAXINE IN STOCK. PER PROVIDER TO RESCHEDULE MED TO 0700 TO ALLOW PHARMACY TO BRING IT
[2025-01-29] MEDS: ATORVASTATIN CALCIUM 20 MG TABLET 40 MG PO (06:56)
--- NOTE | 2025-01-29 07:05 | PC.NURSE ---
@3635 - REPORT RECEIVED AT THIS TIME BY JOSE E ASKEW; PER JOSE E ASKEW, PT WAS HERE FOR STROKE-LIKE S/SX. PT'S LKN AT 1500 YESTERDAY. PT WAS OUT OF THE WINDOW FOR THROMBOLYTICS. STROKE WORK UP STILL IN PLACE BUT NO STROKE ALERT WAS CALLED. PT IS ADMITTED.
[2025-01-29] MEDS: ASPIRIN EC 81 MG TABEC PO (08:19)
[2025-01-29] MEDS: LIDOCAINE 5% 1 PATCH TOP (08:19)
--- NOTE | 2025-01-29 08:57 | PC.CC ---
ASW attempted to complete this initial assessment with the pt; however, pt was asleep. ASW contacted the Person to Notify, which is pts sister and Decision Maker Garima Izaguirreg [phone]. Garima reports the pts PCP is RICKY Hermosillo at Dr. Guerra's office. She reports pt is under care of Dr. Esteban Souza for Cardiovascular specialty. Garima states pt uses DME, a 4 wheel walker at home to ambulate and reports she does her own ADLs. Garima reports the pt does not use O2. Garima reports the pt may not want SNF if offered but may accept Home Health, depending if pts insurance will cover it. Garima confirmed the pts demographics and stated the pt resides in a house directly behind Garima silva, on the same property. Garima stated that ever since the pts fall, she goes over to the pts home to assist with ADLs. According to Garima, pt may need a wheel chair to ambulate at home. Pts pharmacy is [facility] on [address]. Garima stated she is unsure what Code the pt has chosen. Garima would like SS to ask pt directly on what Code status she is. Garima reported pt has support at home, as she lives directly behind her and Garima's adult children also help the pt. Surrogate Decision Maker: Garima Kerwin [phone] PCP: RICKY Hermosillo at Dr. Guerra's office Specialty: Dr. Esteban Souza for Cardiovascular Code Status: SS to ask pt. Unsure at this time. Transportation upon d/c: Family
[2025-01-29] MEDS: HYDROcodone/APAP 5/325 TABLET 1 TAB PO ×2 (10:06→19:44)
--- NOTE | 2025-01-29 15:54 | PD.RESCONSUL ---
HPI Data of Consult Requesting Physician: Oj Fine MD Admitting Provider: Nalini Castañeda MD Attending Provider: Oj Fine MD Primary Care Provider: Izzy Guerra MD Consult Narrative Reason for consult: workup for stroke History of present illness: Jade Hernandez is 79 yr female with PMH of hypothyroidism, HTN, frequent PVCs, partial nephrectomy who presented to the ED on 01/28 after experiencing multiple episodes of right sided upper and lower extremity weakness x1 day. Patient was sitting on couch watching TV when she started experiencing right arm weakness. She first noticed this when reaching out for the remote control. Said she was able to move her arm but unable to grasp the remote control. Attempting to get up from the couch, she also noticed that right leg was weak and not moving. This episode lasted for about 15 minutes. Sometime later in the afternoon that same day, same symptoms returned with resolution after 5 to 10 minutes. Third time, symptoms returned while patient was getting ready for bed. Which is when she decided to come to ED for workup of stroke. She denies having previous TIA or stroke in the past. Patient denied any headache, facial asymmetry, slurred speech, blurry vision, dysphagia. Blood pressure was noted to be 104/66 at home when first time the symptoms started. States that normally her blood pressure is well-controlled with systolic around 140. Is compliant with her antihypertensive medications. Typically sees PCP yearly, with next visit coming up in March. Tele neuro not consulted as patient did not have any symptoms upon arrival in ED. BP at that time was 205/125, glucose 112, 5.3. Chem pannel uremarkable. CT head negative for acute hemorrhage, mass effect, midline shift. 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 CTA head/neck did not show LVO, no carotid stenosis. 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 MRI brain read as restricted diffusion at medullary level. At bedside today, she denies any persistent or new deficits. A1c 5.3, TAG 147, chol 235, LDL 144, HDL 62, TSH 4.67. Echo is pending. Continue aspirin, atorvastatin 80. cc:: cc: Oj Fine MD Review of Systems Review of Systems Systems Reviewed: All systems reviewed, normal except as documented Exam Vital Signs Temp Pulse Resp BP Pulse Ox O2 Del Method 97.4 F 78 18 189/90 H 95 Room Air 01/29/25 12:00 01/29/25 12:17 01/29/25 12:00 01/29/25 12:00 01/29/25 12:00 01/29/25 12:00 Narrative Exam General: elderly female, No acute distress, cooperative HEENT: NCAT, No JVD noted. Mucosa moist. Pupils are equal and reactive to light bilaterally Cardiovascular: Normal S1 and S2. Regular rate and rhythm. Respiratory: Lungs are clear to auscultation bilaterally. No wheezing or crackles heard. Abdomen: Soft, nontender, not distended, normal bowel sounds. Skin: Warm to touch, dry, no rashes noted Musculoskeletal: No gross injuries. Able to move all 4 extremities. No pitting edema Neuro: Alert, awake and oriented x3. Cranial nerves: II through XII grossly intact. Speech and language: Normal with no dysarthria or dysphasia. Motor system: Tone and bulk: Normal: Strength: 5 out of 5 in all 4 extremities; No pronator drift noted. Deep tendon reflexes: 2+ bilaterally symmetrical. Plantar reflex: Downgoing bilaterally. Sensory system: Intact to all modalities of sensation bilaterally. Coordination: Intact to [id number] and [id number] test bilaterally. No ataxia, no dysmetria, or dysdiadochokinesia noted. No intention tremors noted. Gait: Not tested. No signs of meningeal irritation noted. Psych: Normal affect and mood Results Labs 01/30/25 04:50 01/30/25 04:50 Labs: Short CBC 01/28/25 01/29/25 Range/Units 23:20 04:57 WBC 10.7 10.2 (3.6-11.0) Thou/mm3 Hgb 15.3 15.0 (12.0-16.0) g/dL Hct 43.7 43.2 (36.0-46.0) % Plt Count 242 242 (140-440) Thou/mm3 BMP 01/28/25 01/29/25 23:20 04:57 Sodium 142 142 Potassium 3.4 3.4 Chloride 101 103 Carbon Dioxide 29.7 26.4 BUN 17 13 Creatinine 0.9 0.8 Glucose 112 H 116 H Calcium 10.5 9.8 Cardiac Enzymes 01/28/25 Range/Units 23:20 Troponin I < 0.020 (0.0-0.045) ng/mL Liver Function 01/28/25 Range/Units 23:20 Total Bilirubin 0.6 (0.3-1.2) mg/dL AST 19 (0-34) U/L ALT 21 (10-49) U/L Alkaline Phosphatase 138 H (46-116) U/L Albumin 4.8 (3.4-4.8) gm/dL Urine 01/28/25 Range/Units 23:38 Urine Color Lt-Yellow (Lt Yel-Yel) Urine Clarity Turbid A (Clear/Hazy) Urine pH 7.5 H (5.0-7.0) Ur Specific [place] 1.015 (1.001-1.035) Urine Protein Negative (Neg - Trace) Urine Glucose (UA) Negative (Negative) Quality Measures Quality Measures none Advance care planning discussed with:: patient Medications Home Medications and Allergies Home Medications ?Medication ?Instructions ?Recorded ?Confirmed ?Type hydrochlorothiazide 12.5 mg tablet 12.5 mg PO QDAY 07/04/18 01/29/25 History fluticasone furoate 100 1 inh inhalation QDAY 01/18/20 01/29/25 History mcg-vilanterol 25 mcg/dose inhalation powder levothyroxine 100 mcg tablet 100 mcg PO QDAY 01/18/20 01/29/25 History (Synthroid) acetaminophen 300 mg-codeine 30 mg 0.5 tab PO Q12H PRN back pain 01/29/25 01/29/25 History tablet losartan 100 mg tablet 100 mg PO QDAY 01/29/25 01/29/25 History Allergies Allergy/AdvReac Type Severity Reaction Status Date / Time No Known Allergies Allergy Unverified 01/29/25 06:13 Visit Medications Acetaminophen (Acetaminophen 325 Mg Tablet) 650 mg PO Q6H PRN PRN Reason: Fever >100.3 Stop: 02/28/25 03:40 Acetaminophen (Acetaminophen 325 Mg Tablet) 650 mg PO Q6H PRN PRN Reason: PAIN SCALE 1-3 (mild Stop: 02/28/25 03:40 Hydrocodone Bitart/Acetaminophen (Hydrocodone/Apap 5/325 Tablet) 1 tab PO Q6HR PRN PRN Reason: PAIN SCALE 4-6 (Moderate Stop: 02/03/25 03:40 Last Admin: 01/29/25 10:06 Dose: 1 tab Albuterol/Ipratropium (Albuterol/Ipratropium (Duoneb) Rt Megan 3 Ml Nebu) 3 ml INH Q2HR PRN PRN Reason: SHORTNESS OF BREATH OR WHEEZE Stop: 02/28/25 04:54 Aspirin (Aspirin Ec 81 Mg Tabec) 81 mg PO QDAY HUGO Stop: 02/28/25 08:59 Last Admin: 01/29/25 08:19 Dose: 81 mg Atorvastatin Calcium (Atorvastatin Calcium 20 Mg Tablet) 80 mg PO HS HUGO Stop: 02/28/25 20:59 Heparin Sodium (Porcine) (Heparin Sod Inj 5000 Unit/Ml Vial) 5,000 unit SC Q8HR HUGO Stop: 02/12/25 05:59 Last Admin: 01/29/25 13:04 Dose: 5,000 unit Hydroxyzine HCl (Hydroxyzine Hcl 25 Mg Tablet) 25 mg PO X1 PRN PRN Reason: anxiety Stop: 02/28/25 04:52 Sodium Chloride (Ns) 1,000 mls @ 100 mls/hr IV .Q10H HUGO Stop: 02/27/25 23:14 Last Admin: 01/29/25 12:56 Dose: 100 mls/hr Labetalol HCl (Labetalol Inj 5 Mg/Ml Vial 20 Ml) 10 mg IVP Q10MIN PRN PRN Reason: hypertension Stop: 02/28/25 08:44 Levothyroxine Sodium (Levothyroxine Sodium 100 Mcg Tablet) 100 mcg PO ACBR HUGO Stop: 03/01/25 06:59 Lidocaine (Lidocaine 5% 1 Patch) 1 patch [facility] [place] Protocol Stop: 02/28/25 08:14 Last Admin: 01/29/25 08:19 Dose: 1 patch Ondansetron HCl (Ondansetron Inj 2 Mg/Ml Inj 2 Ml) 4 mg IVP Q6HR PRN; Protocol PRN Reason: NAUSEA OR VOMITING Stop: 02/28/25 03:40 Discontinued Medications Aspirin (Aspirin 325 Mg Tablet) 325 mg PO X1 ONE Stop: 01/29/25 02:08 Last Admin: 01/29/25 02:13 Dose: 325 mg Atorvastatin Calcium (Atorvastatin Calcium 20 Mg Tablet) 40 mg PO X1 ONE Stop: 01/29/25 06:39 Last Admin: 01/29/25 06:56 Dose: 40 mg Buspirone HCl (Buspirone Hcl 5 Mg Tablet) 5 mg PO BID [facility] Stop: 02/28/25 08:59 Hydralazine HCl (Hydralazine Inj 20 Mg/Ml Vial) 10 mg IVP X1 ONE Stop: 01/29/25 02:09 Last Admin: 01/29/25 02:13 Dose: 10 mg Hydralazine HCl (Hydralazine Inj 20 Mg/Ml Vial) 10 mg IVP X1 ONE Stop: 01/29/25 03:39 Last Admin: 01/29/25 03:45 Dose: 10 mg Hydrochlorothiazide (Hydrochlorothiazide 12.5 Mg Capsule) 12.5 mg PO QDAY [facility] Stop: 02/28/25 08:59 Labetalol HCl (Labetalol Inj 5 Mg/Ml Vial 20 Ml) 10 mg IVP X1 ONE Stop: 01/28/25 23:11 Last Admin: 01/29/25 00:04 Dose: 10 mg Labetalol HCl (Labetalol Inj 5 Mg/Ml Vial 20 Ml) 10 mg IVP Q15M PRN PRN Reason: HYPER Levothyroxine Sodium (Levothyroxine Sodium 100 Mcg Tablet) 100 mcg PO ACBR HUGO Stop: 02/28/25 05:59 Last Admin: 01/29/25 07:39 Dose: Not Given Lisinopril (Lisinopril 2.5 Mg Tablet) 5 mg PO QDAY [facility] Stop: 02/28/25 08:59 Ondansetron HCl (Ondansetron Inj 2 Mg/Ml Inj 2 Ml) 4 mg IVP Q4HR PRN PRN Reason: NAUSEA OR VOMITING Stop: 02/27/25 23:14 Assessment & Plan Plan Jade Hernandez is 79 yr female with PMH of hypothyroidism, HTN, frequent PVCs, partial nephrectomy who presented to the ED on 01/28 after experiencing multiple episodes of right sided upper and lower extremity weakness x1 day. Admitted for workup CVA. #Right upper and lower extremity weakness - resolved 2/2 #TIA #Occlusion and stenosis of right vertebral artery #HTN Patient was sitting on couch watching TV when she started experiencing right arm weakness. Endorses three episodes that lated around 10 min of right upper and lower extremity weakness. Denies TIA/stroke in the past. In ED, BP was 205/125, glucose 112, 5.3. Chem pannel uremarkable. CT head negative for acute hemorrhage, mass effect, midline shift. 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 CTA head/neck did not show LVO, no carotid stenosis. 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 MRI brain read restricted diffusion at medullary level but low suspicion after re evaluating imaging. Most likely patient had TIA. At bedside today, she denies any persistent or new deficits. A1c 5.3, TAG 147, chol 235, LDL 144, HDL 62, TSH 4.67. Tele neuro not consulted as patient did not have any symptoms upon arrival in ED. -Aspirin 81 mg PO daily + Atorvastatin 80 mg PO daily +plavix for 90 days -needs outpatient evaluation by vascular surgery - Neuro Checks q4h - Permissive HTN. Antihypertensives PRN if BP >220/120 or c/f end-organ damage/contraindications. Can give labetalol PO or IV or Vasotec IV with a goal of 15% reduction in BP during the first 24 hours. - Aspiration Precautions, Head of bed 30 degrees - Euglycemia and avoid Hyperthermia - Consulted neuro, appreciate recs - Refer PT, speech eval -resume home meds HCTZ 12.5 mg PO daily - Lisinopril 5 mg PO daily after permissive htn #Chronic low back pain #Hypothyroidism #Asthma Primary care team to manage above conditions and ongoing care needs. The patient's management plan was discussed with my attending physician Dr. Montelongo. Megan Tovar, PGY-2 Attending Provider Attestation/Addendum I personally have seen and examined the patient at the bedside and agree with present findings, assessment and plan of care. Reassurance given to the patient regarding the negative MRI brain findings not significant with positive DWI in the medulla but not ADC correlate. Patient most likely has had brainstem TIA and advised her to continue with aspirin and Plavix for 90 days along with aggressive medical management with sugar control and statin. Follow-up with echocardiogram
--- NOTE | 2025-01-29 16:59 | PD.RESPRO ---
Documentation for date of: 01/29/25 Overnight admission for generalized right upper and lower extremity weakness and CVA work up, including MRI. CT head negative. Echo added. Aspirin and Atorvastatin started. Patient out of hypertensive window after 3PM, thus home Losartan resumed. MRI noted for Equivocal focus of restricted diffusion in the brainstem at medullary level. Neurology consulted, Plavix started, continue Aspirin, and Atorvastatin 80 mg HS. ASCVD->age 79 unable to calculate risk score. Continue high dose Atorvastatin. Pending PT. Echo Senior Resident Attestation: I have discussed the case with supervising physician and news intern physician involved in the care of patient. I personally saw and examined patient and discussed the assessment and plan with the entire medical team, including attending. I agree with assessment and plan as documented below. - The patient's plan was discussed with attending Dr. Rody Jiang MD PGY2 Internal Medicine Subjective Subjective Interval history: MRI restricted diffusion in brain stem medullary level. ECHO unemarkable Neuro recs continue aspirin start atorvastatin 80mg and plavix, beleives patient most likely has TIA. Patient examined bedside, labs reviewed. states headache 3/10. When asked about PVCs she states please don't do anything for PVCs, Dr. Souza is on top of it . She currently is asymptomatic NIHSS: 0 Exam Vital Signs Temp Pulse Resp BP Pulse Ox O2 Del Method 97.4 F 77 18 189/90 H 95 Room Air 01/29/25 12:00 01/29/25 16:00 01/29/25 12:00 01/29/25 12:00 01/29/25 12:00 01/29/25 12:00 Narrative Exam General: No acute distress, well nourished Eye: PERRL, EOMI, normal conjunctiva, no scleral icterus HENT: Normocephalic, atraumatic, normal hearing, moist oral mucosa Neck: Supple, non-tender, no JVD, no lymphadenopathy Lungs: Clear to auscultation bilaterally, non-labored respirations, symmetric chest rise, no use of accessory muscles Heart: Normal S1 and S2, no S3 or S4 appreciated. Normal rate and regular rhythm, no murmurs, rubs gallops, or edema. Peripheral pulses intact bilaterally, capillary refill brisk distally Abdomen: Soft, non-tender, non-distended, normal bowel sounds. No guarding or rebound tenderness. Musculoskeletal: Normal range of motion and strength, no tenderness or swelling. Trace pedal edema Skin: Skin is warm, dry, no rashes or lesions. Redness of b/l cheeks and forehead Psychiatric: Cooperative, appropriate mood and affect Neurologic: Mental status: Orientation: Oriented to person, place, time, and situation Communication: Patient is cooperative and can follow simple instructions Language: Speech fluent, normal rate and volume, comprehension intact Cranial nerves: CN II: Visual monsalve intact CN III: Pupils equal, round, and reactive to light CN III, IV, : No gaze deviation, no nystagmus Horizontal pursuit: intact Vertical pursuit: intact Ptosis: none CN V: Facial sensation to light touch intact bilaterally at the forehead, cheeks, and jaw line CN VII: Face symmetric, no facial droop appreciated CN VIII: Able to hear and respond to conversation at normal volume, intact to finger rub CN IX, X: Palate elevation symmetric, uvula midline CN XI: Head turn and shoulder shrug strong, symmetric bilaterally CN XII: Normal tongue protrusion without deviation, no fasciculations Motor: Normal bulk and tone No atrophy No abnormal movements or fasciculations Muscle strength: Shoulder abduction: R 5/5 L 5/5 Elbow flexion: R 5/5 L 5/5 Elbow extension: R 5/5 L 5/5 Hip flexion: R 5/5 L 5/5 Hip extension: R 5/5 L 5/5 Knee flexion: R 5/5 L 5/5 Knee extension: R 5/5 L 5/5 Sensory: RUE: Light touch intact LUE: Light touch intact RLE: Light touch intact LLE: Light touch intact Cerebellum: RUE: No dysmetria (finger to nose) LUE: No dysmetria (finger to nose) RLE: No dysmetria (heel to [place]) LLE: No dysmetria (heel to [place]) Objective Labs 01/30/25 04:50 01/30/25 04:50 Labs: Laboratory Results - last 24 hr 01/28/25 01/28/25 01/29/25 23:20 23:38 04:57 WBC 10.7 10.2 RBC 4.64 4.56 Hgb 15.3 15.0 Hct 43.7 43.2 MCV 94 95 MCH 33.0 32.9 MCHC 35.0 34.7 RDW Std Deviation 44.8 45.3 Plt Count 242 242 Neut % (Auto) 57 63 Lymph % (Auto) 34 29 [place] % (Auto) 8 7 Eos % (Auto) 1 1 Baso % (Auto) 0 0 Neut # (Auto) 6.1 6.4 Lymph # (Auto) 3.6 2.9 [place] # (Auto) 0.8 0.8 Eos # (Auto) 0.1 0.1 Baso # (Auto) 0.0 0.0 Immature Gran # (Auto) 0.05 H 0.04 H Absolute Nucleated RBC 0.00 0.00 Immature Gran % 1 H 0 Nucleated RBC % 0 0 PT 10.7 INR 1.0 APTT 29.5 Sodium 142 142 Potassium 3.4 3.4 Chloride 101 103 Carbon Dioxide 29.7 26.4 Anion Gap 11 13 BUN 17 13 Creatinine 0.9 0.8 Estim Creat Clear Calc 54.0 L 60.8 L eGFR > 60 > 60 BUN/Creatinine Ratio 19 16 Glucose [address] Glu mg/dL 105 Hemoglobin A1c 5.3 Calculated Osmolality 285 284 Calcium 10.5 9.8 Corrected Calcium 10.5 H Magnesium 2.0 1.9 Total Bilirubin 0.6 AST 19 ALT 21 Alkaline Phosphatase 138 H Troponin I < 0.020 Total Protein 7.1 Albumin 4.8 Globulin 2.3 Albumin/Globulin Ratio 2.1 Triglycerides 147 Cholesterol 235 H LDL Cholesterol, Calc 144 H HDL Cholesterol 62 H Cholesterol/HDL Ratio 3.8 TSH 4.67 Ur Collection Type Clean Catch Urine Color Lt-Yellow Urine Clarity Turbid A Urine pH 7.5 H Ur Specific [place] 1.015 Urine Protein Negative Urine Glucose (UA) Negative Urine Ketones Negative Urine Blood Negative Urine Nitrite Negative Urine Bilirubin Negative Urine Urobilinogen (Auto) Negative Ur Leukocyte Esterase Negative Urine RBC 2 Urine WBC 1 Ur Squamous Epith Cells < 1 Amorphous Crystals Present A Urine Bacteria None Ur Culture Indicated? Not Indicated Urine Opiates Screen Positive A Urine Fentanyl Screen Negative Ur Barbiturates Screen Negative U Amphetamin/Meth Scrn Negative U Benzodiazepines Scrn Negative U Cocaine Metab Screen Negative U Marijuana (THC) Screen Negative Quality Measures Quality Measures none Advance care planning discussed with:: other Assessment & Plan Assessment Current Active Medications: Generic Name Dose Route Start Last Admin Trade Name Freq PRN Reason Stop Dose Admin Acetaminophen 650 mg 01/29/25 03:41 Acetaminophen 325 Mg Tablet PO 02/28/25 03:40 Q6H PRN Fever >100.3 Acetaminophen 650 mg 01/29/25 03:41 Acetaminophen 325 Mg Tablet PO 02/28/25 03:40 Q6H PRN PAIN SCALE 1-3 (mild Hydrocodone Bitart/Acetaminophen 1 tab 01/29/25 03:41 01/29/25 10:06 Hydrocodone/Apap 5/325 Tablet PO 02/03/25 03:40 1 tab Q6HR PRN Administration PAIN SCALE 4-6 (Moderate Albuterol/Ipratropium 3 ml 01/29/25 04:55 Albuterol/Ipratropium (Duoneb) Rt Megan 3 Ml Nebu INH 02/28/25 04:54 Q2HR PRN SHORTNESS OF BREATH OR WHEEZE Aspirin 81 mg 01/29/25 09:00 01/29/25 08:19 Aspirin Ec 81 Mg Tabec PO 02/28/25 08:59 81 mg QDAY HUGO Administration Atorvastatin Calcium 80 mg 01/29/25 21:00 Atorvastatin Calcium 20 Mg Tablet PO 02/28/25 20:59 HS HUGO Heparin Sodium (Porcine) 5,000 unit 01/29/25 06:00 01/29/25 13:04 Heparin Sod Inj 5000 Unit/Ml Vial SC 02/12/25 05:59 5,000 unit Q8HR HUGO Administration Hydroxyzine HCl 25 mg 01/29/25 04:53 Hydroxyzine Hcl 25 Mg Tablet PO 02/28/25 04:52 X1 PRN anxiety Sodium Chloride 1,000 mls @ 100 mls/hr 01/28/25 23:15 01/29/25 12:56 Ns IV 02/27/25 23:14 100 mls/hr .Q10H HUGO Administration Labetalol HCl 10 mg 01/29/25 08:31 Labetalol Inj 5 Mg/Ml Vial 20 Ml IVP 02/28/25 08:44 Q10MIN PRN hypertension Levothyroxine Sodium 100 mcg 01/30/25 07:00 Levothyroxine Sodium 100 Mcg Tablet PO 03/01/25 06:59 ACBR HUGO Lidocaine 1 patch 01/29/25 08:15 01/29/25 08:19 Lidocaine 5% 1 Patch TOP 02/28/25 08:14 1 patch UD HUGO Administration Protocol Ondansetron HCl 4 mg 01/29/25 03:41 Ondansetron Inj 2 Mg/Ml Inj 2 Ml IVP 02/28/25 03:40 Q6HR PRN NAUSEA OR VOMITING Protocol Plan Ms. Hernandez is an 79 y/o female with PMH hypothyroidism, HTN, PVCs, who presented to the ED on 01/28 after experiencing multiple episodes of right sided upper and lower extremity weakness x1 day. Admitted for TIA workup. Neuro consulted and beleives presentation is due to TIA. #CVA, likely TIA #TIA #Right upper and lower extremity weakness - resolved Concern for CVA, ruling out ischemic stroke pending MRI vs TIA given resolution of symptoms vs hypertensive emergency given Blood pressure. Last well known time 15:30 on 01/28/2025. CT head negative. Echo Negative for PFO. NOT a candidate for TPA given out of window. A1C: 5.3 Lipids: cholesterol 235 tri 147 LDL [address] head w/o: negative for acute hemorrhage, mass effect, midline shift. 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 CTA head/neck w/: no LVO, no carotid stenosis. 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 MRI/MRA w/ and w/o: Equivocal focus of restricted diffusion in the brainstem medullary level, the appearance should be correlated with clinical assessment by neurology Plan: - Aspirin 81 mg PO daily - Atorvastatin 80 mg PO daily - Plavix 75mg PO QD - Neuro Checks q4h - Permissive HTN. Antihypertensives PRN if BP >220/120 or c/f end-organ damage/contraindications. Can give labetalol PO or IV or Vasotec IV with a goal of 15% reduction in BP during the first 24 hours. - Aspiration Precautions, Head of bed 30 degrees - Euglycemia and avoid Hyperthermia - Consulted neuro, appreciate recs - Refer PT, speech eval #Chronic low back pain Usually takes 1/2 [place] BID. States that lidocaine patch and muscle relaxers do not help. Planning for injections on Tuesday, but can no longer make this appt given that she would need to be off antiplatelets for 5 days before injections Follows with pain specialists Plan: - Tylenol PRN, [place] 5 q6h PRN #Hypertensive Emergency, improving #Hypertension Plan: - See above for permissive HTN parameters for 04 27 hours, out of permissive hypertension. Home Losartan 100 mg resumed on 01/29/2025. - HCTZ 12.5 mg PO daily (home med) - DC'd - Lisinopril 5 mg PO daily - DC'd - Labetalol 10mg IVP Q10min PRN - Losartan 100mg PO QD #Hypothyroidism TSH within normal limits. Plan: - Levothyroxine 100 mcg PO daily (home med) #Asthma Home med: [place] Plan: - Albuterol PRN #Frequent PVCs Patient is aware and follows cardiology outpatient, not on any treatment currently Checklist Dispo: Telemetry awaiting neurology recommendation, physical therapy and echocardiogram Diet: regular Bowel Reg: n/a VTE ppx: heparin subQ GI ppx: n/a Pain mgmt: Tylenol, [place] PRN Code status: DNR/DNI Plan discussed with Dr. Jiang and Dr. Rody Reynolds MD PGY1 Attending Provider Attestation/Addendum I have seen and examined the patient. I was physically present for the zepeda portions of the services provided including history, physical exam, diagnosis, treatment plans and orders. I agree with assessment and plan of care as documented by residents. Even though this this note was carefully revised there may still be minor errors in digital photo printer due to voice recognition software. Oj Fine MD
[2025-01-29] MEDS: LOSARTAN POTASSIUM 25 MG TABLET 100 MG PO (17:49)
[2025-01-29] MEDS: CLOPIDOGREL BISULFATE 75 MG TABLET PO (19:45)
[2025-01-29] MEDS: ATORVASTATIN CALCIUM 20 MG TABLET 80 MG PO (21:26)
[2025-01-30] VITALS (9 sets, daily range): BP systolic 145–180; BP diastolic 63–104; PULSE 57–81; RESP 16–95; TEMP 36.7–37; O2SAT 95–97; BMI 34.0
[2025-01-30] MEDS: HYDROcodone/APAP 5/325 TABLET 1 TAB PO ×2 (01:51→11:45)
[2025-01-30 05:21] LABS: Basophils # (Auto) 0.0 Thou/mm3 (0.0-0.2); Basophils % (Auto) 0 % (0-2.5); Eosinophils # (Auto) 0.1 Thou/mm3 (0.0-0.5); Eosinophils % (Auto) 1 % (0-10); Hematocrit 39.7 % (36.0-46.0); Hemoglobin 13.6 g/dL (12.0-16.0); Immature Granulocytes Auto 0.02 Thou/mm3 (0.00-0.00); Lymphocytes # (Auto) 1.9 Thou/mm3 (1.0-4.8); Lymphocytes % (Auto) 20 % (10-50); Mean Corpuscular HGB Conc 34.3 g/dl (31.0-37.0); Mean Corpuscular Hemoglobin 33.2 pg (25.0-35.0); Mean Corpuscular Volume 97 fL (80-100); Monocytes # (Auto) 0.9 Thou/mm3 (0.0-0.8); Monocytes % (Auto) 9 % (0-12); Neutrophils # (Auto) 6.4 Thou/mm3 (1.8-7.7); Neutrophils % (Auto) 69 % (37-80); Nucleated Red Blood Cell # 0.00 Thou/mm3 (0.00-0.00); Nucleated Red Blood Cell % 0 /100 WBC (0); Platelet Count 174 Thou/mm3 (140-440); RDW Standard Deviation 47.2 fL (36.4-46.3); Red Blood Count 4.10 Miln/mm3 (4.00-5.20); White Blood Count 9.2 Thou/mm3 (3.6-11.0)
[2025-01-30 06:03] LABS: Anion Gap 11 (7-16); BUN/Creatinine Ratio 13 Ratio (12-20); Blood Urea Nitrogen 8 mg/dL (9-23); Calcium 8.5 mg/dL (8.3-10.6); Carbon Dioxide 24.8 mMol/L (20.0-31.0); Chloride 106 mMol/L (98-107); Creatinine (Component) 0.6 mg/dL (0.6-1.3); Estimated Creatinine Clearance 83.6 mL/min (>60); Glucose 104 mg/dL (74-106); Magnesium 1.9 mg/dL (1.6-2.6); Osmolality,Calculated 281 (275-295); Phosphorous 2.2 mg/dL (2.4-5.1); Potassium 3.4 mMol/L (3.4-5.1); Sodium 142 mMol/L (136-145); eGFR > 60 See Note
[2025-01-30] MEDS: LEVOTHYROXINE SODIUM 100 MCG TABLET PO (06:22)
[2025-01-30] MEDS: HEPARIN SOD INJ 5000 UNIT/ML VIAL SC ×2 (06:23→14:15)
[2025-01-30] MEDS: CLOPIDOGREL BISULFATE 75 MG TABLET PO (08:46)
[2025-01-30] MEDS: NAPH,KPH MBDB 1 PACKET (1.5 GM) PO (08:46)
[2025-01-30] MEDS: ASPIRIN EC 81 MG TABEC PO (08:47)
[2025-01-30] MEDS: Magnesium Sulfate 4 GM Ivpb 4 GM/50 ML BAG IV (08:48)
[2025-01-30] MEDS: LOSARTAN POTASSIUM 25 MG TABLET 100 MG PO (09:05)
[2025-01-30] MEDS: POLYETHYLENE GLYCOL 17 GM PACKET PO (11:45)
--- NOTE | 2025-01-30 12:20 | PC.SS ---
SS follow up note; Patient is pending PT evaluation. Patient will discharge home when medically cleared.
--- NOTE | 2025-01-30 14:09 | ESDS_ITS ---
Planned Discharge Date 01/30/25 Patient is a 79-year-old female with a past medical history of hypertension, hypothyroidism, history of asthma, chronic low back pain, and frequent PVCs who follows Dr. Souza as her technical specialist cytology who presented to the emergency room with generalized upper and lower right-sided extremity weakness and diagnosed with transient ischemic attack as patient's symptoms resolved and MRI showed a restricted diffused pattern at the medullary level. Neurology consulted likely findings are secondary to TIA. Aspirin, atorvastatin and Plavix to continue after discharge. Dual antiplatelets with aspirin and Plavix to continue for 21 days and afterwards only aspirin. Physical therapy not recommending SNF. Echo negative for PFO's or ASD. Echo did reveal a preserved ejection fraction of 60 to 65% with a diastolic dysfunction grade 1 but no symptoms of CHF. Mild pulmonary hypertension, RSVP of 39 mm per mercury. Moderate aortic valve sclerosis with no stenosis. Continue patient's levothyroxine at MCG's daily has TSH within normal limits. Given patient's hypertensive emergency upon admission that resolved, continue losartan 100 mg, continue home medication of higher chlorothiazide 12.5 mg, and continue amlodipine 10 mg once daily. Please follow up with your primary care provider or technical specialist cytology for further re commendations. Senior Resident Attestation: I have discussed the case with supervising physician and r d intern physician involved in the care of patient. I personally saw and examined patient and dis cussed the assessment and plan with the entire medical team, including attending. I agree with assessment and plan as documented below. - The patient's plan was discussed with attending Dr. Fine. Kamini Jiang MD PGY2 Internal Medicine DS: Providers Provider Date of admission: 01/29/25 03:41 Primary care physician: Izzy Guerra MD Admitting Provider: Nalini Castañeda MD Attending Provider on Admission: Oj Fine MD Consults: 01/28/25 23:15 Consult to Neurology / Tele-Neurology Routine Comment: Consulting Provider: [facility] 01/29/25 04:35 Consult to Neurology / Tele-Neurology Stat Comment: Consulting Provider: Renard Montelongo 01/29/25 04:36 Referral Physical Therapy Stat Comment: Physician Instructions: Referral Speech Therapy Stat Comment: Attending Provider on DC: Oj Fine MD Discharging Provider: Oj Fine MD DS: Diagnosis Problem List Completed Was Problem List Reviewed/Reconciled?: Yes Hospital Course Hospital Course Hospital course: Ms. Hernandez is an 79 y/o female with PMH hypothyroidism, HTN, PVCs, who presented to the ED on 01/28 after experiencing multiple episodes of right sided upper and lower extremity weakness x1 day. Admitted for TIA workup. ED: No stroke alert called as patient's symptoms resolved. BP 205/125 --> 226/98 --> 186/101. Labs significant for alk phos 138. UDS + opiates (takes 1/2 [place] at home BID for chronic back pain). CT head showed no acute hemorrhage, mass effect or midline shift. 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 CTA showed no LVO, no carotid stenosis. 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 CXR unremarkable. EKG NSR with PVCs, HR 82, QTc 425. Given labetalol 10 mg IV, 1L NS, ASA 325 mg PO, hydralazine 10 mg IV Hospital Course: Upon admission patient's symptoms had resolved to NIHSS:0. MRI quivocal focus of restricted diffusion in the brainstem medullary level. Neuro consult: presentation is due to TIA. Started patient on aspirin 81mg, atorvastatin 80mg, and plavix 75mg. Hypertensive emergency was manageed with permissive strategy and labetalol 10mg PRN and losartan 100mg. She is well aware of her PVCs and made it very clear that her technical specialist cytology does not want any treatment for them currently. Patient is back to baseline, and has resolution of all symptoms. Is safe to discharge home. Discharge Instructions: ? You have been started on aspirin and Plavix for your stroke. Take both for the next 19 days. Following that take only aspirin and statin. ? You have been started on atorvastatin for your cholesterol. - Started on Amlodipine for blood pressure ? Continue the rest of your home medications as before ? Follow-up with neurologist, Dr. Montelongo within 2 weeks of discharge ? Follow-up with cardiology, Dr. Cheng Souza - Follow up with your primary care physician within 1 week of discharge. If you do not have a primary care physician, please follow up with the [facility] Residents clinic ([phone]) ? If you experience any new, worsening or persistent symptoms either call your primary doctor, or dial 911 or present to the emergency department. #CVA, likely TIA #TIA #Right upper and lower extremity weakness - resolved #Chronic low back pain #Hypertensive Emergency, improving #Hypertension #Hypothyroidism #Asthma #Frequent PVCs Patient's plan and care discussed with my attending, Dr. Fine, and supervising resident MD Wally Merrill MD Internal Medicine PGY-1 Status at Discharge Functional status at discharge: independent ambulation Overall status at discharge: patient is back to baseline Time Spent with Patient Time attestation: Total time spent providing and/or coordinating discharge services: 37 min Time spent: Greater than 30 minutes Exam Vital Signs Temp Pulse Resp BP Pulse Ox O2 Del Method 98.2 F 60 20 162/63 H 95 Room Air 01/30/25 12:00 01/30/25 12:00 01/30/25 12:00 01/30/25 12:00 01/30/25 12:00 01/30/25 12:00 Narrative Exam General: No acute distress, well nourished Eye: PERRL, EOMI, normal conjunctiva, no scleral icterus HENT: Normocephalic, atraumatic, normal hearing, moist oral mucosa Neck: Supple, non-tender, no JVD, no lymphadenopathy Lungs: Clear to auscultation bilaterally, non-labored respirations, symmetric chest rise, no use of accessory muscles Heart: Normal S1 and S2, no S3 or S4 appreciated. Normal rate and regular rhythm, no murmurs, rubs gallops, or edema. Peripheral pulses intact bilaterally, capillary refill brisk distally Abdomen: Soft, non-tender, non-distended, normal bowel sounds. No guarding or rebound tenderness. Musculoskeletal: Normal range of motion and strength, no tenderness or swelling. Skin: Skin is warm, dry, no rashes or lesions. Psychiatric: Cooperative, appropriate mood and affect Neurologic: Mental status: Orientation: Oriented to person, place, time, and situation Communication: Patient is cooperative and can follow simple instructions Language: Speech fluent, normal rate and volume, comprehension intact Cranial nerves: CN II: Visual monsalve intact CN III: Pupils equal, round, and reactive to light CN III, IV, : No gaze deviation, no nystagmus Horizontal pursuit: intact Vertical pursuit: intact Ptosis: none CN V: Facial sensation to light touch intact bilaterally at the forehead, cheeks, and jaw line CN VII: Face symmetric, no facial droop appreciated CN VIII: Able to hear and respond to conversation at normal volume, intact to finger rub CN IX, X: Palate elevation symmetric, uvula midline CN XI: Head turn and shoulder shrug strong, symmetric bilaterally CN XII: Normal tongue protrusion without deviation, no fasciculations Motor: Normal bulk and tone No atrophy No abnormal movements or fasciculations Muscle strength: Shoulder abduction: R 5/5 L 5/5 Elbow flexion: R 5/5 L 5/5 Elbow extension: R 5/5 L 5/5 Hip flexion: R 5/5 L 5/5 Hip extension: R 5/5 L 5/5 Knee flexion: R 5/5 L 5/5 Knee extension: R 5/5 L 5/5 Sensory: RUE: Light touch intact LUE: Light touch intact RLE: Light touch intact LLE: Light touch intact Cerebellum: RUE: No dysmetria (finger to nose) LUE: No dysmetria (finger to nose) RLE: No dysmetria (heel to [place]) LLE: No dysmetria (heel to [place]za) Discharge Plan Plan Patient Disposition: HOME (Self Care) Patient condition on transfer: Stable Care Plan Goals: ? You have been started on aspirin and Plavix for your stroke. Take both for the next 19 days. Following that take only aspirin and statin. ? You have been started on atorvastatin for your cholesterol. - Started on Amlodipine for blood pressure ? Continue the rest of your home medications as before ? Follow-up with neurologist, Dr. Montelongo within 2 weeks of discharge ? Follow-up with cardiology, Dr. Cheng Souza - Follow up with your primary care physician within 1 week of discharge. If you do not have a primary care physician, please follow up with the [facility] Residents clinic ([phone]) ? If you experience any new, worsening or persistent symptoms either call your primary doctor, or dial 911 or present to the emergency department. Prescriptions/Referrals Prescriptions/Med Rec: New clopidogrel 75 mg Tablet 75 mg PO QDAY 19 Days Qty: 19 0RF aspirin 81 mg Tablet,Delayed Release (Dr/Ec) 81 mg PO QDAY 90 Days Qty: 90 0RF atorvastatin [Lipitor] 80 mg tablet 80 mg PO QPM 90 Days Qty: 90 0RF amlodipine 5 mg Tablet 10 mg PO QDAY 30 Days Qty: 60 1RF Continued hydrochlorothiazide 12.5 mg tablet 12.5 mg PO QDAY levothyroxine [Synthroid] 100 mcg Tablet 100 mcg PO QDAY fluticasone furoate-vilanterol 100-25 mcg/dose Blister With Device 1 inh INHALATION QDAY acetaminophen-codeine 300-30 mg tablet 0.5 tab PO Q12H PRN (Reason: back pain) Patient Comments: TAKE 0.5 TABLET BY MOUTH 2 TIMES PER DAY NEEDED losartan 100 mg tablet 100 mg PO QDAY Referrals: Izzy Guerra MD [Primary Care Provider, Family Practice] Renard Montelongo MD [Physician, Neurology] Patient/Caregiver Discharge Instructions Discharge Activity: as per physical therapy Education Materials: ED TIA: Transient Ischemic Attack Print Language: Cuban Stand Alone Forms: Ivette Award Info., Patient Portal Info Letter Discharge Order Discharge Orders: Discharge (Routine); Ordered 01/30/25 Ordered By: Alexandro Kirby Quality Discharge Quality Measures VTE prophylaxis Attestestation MD Attestation I have seen and examined the patient. I was physically present for the zepeda portions of the services provided including history, physical exam, diagnosis, treatment plans and orders. I agree with assessment and plan of care as documented by residents. Even though this this note was carefully revised there may still be minor errors in rose grader due to voice recognition software. Oj Fine MD
--- NOTE | 2025-01-30 14:17 | PC.PT ---
PT eval only. Patient is I with transfers and ambulation with [facility].
--- NOTE | 2025-01-30 21:54 | PD.VPROG1 ---
Telemedicine visit statement This visit was conducted with the use of interactive phone was obtained on 01/30/25. Documentation for date of: 01/30/25 Subjective Subjective Interval history: Patient is in MedSurg. No new symptoms reported. Virtual exam Vital Signs Temp Pulse Resp BP Pulse Ox O2 Del Method 98.4 F 57 L 18 145/93 H 95 Room Air 01/30/25 16:00 01/30/25 16:00 01/30/25 16:00 01/30/25 16:00 01/30/25 16:00 01/30/25 16:00 Objective Labs 01/30/25 04:50 01/30/25 04:50 Labs: Laboratory Results - last 24 hr 01/30/25 04:50 WBC 9.2 RBC 4.10 Hgb 13.6 Hct 39.7 MCV 97 MCH 33.2 MCHC 34.3 RDW Std Deviation 47.2 H Plt Count 174 D Neut % (Auto) 69 Lymph % (Auto) 20 [place] % (Auto) 9 Eos % (Auto) 1 Baso % (Auto) 0 Neut # (Auto) 6.4 Lymph # (Auto) 1.9 [place] # (Auto) 0.9 H Eos # (Auto) 0.1 Baso # (Auto) 0.0 Immature Gran # (Auto) 0.02 H Absolute Nucleated RBC 0.00 Immature Gran % 0 Nucleated RBC % 0 Sodium 142 Potassium 3.4 Chloride 106 Carbon Dioxide 24.8 Anion Gap 11 BUN 8 L Creatinine 0.6 Estim Creat Clear Calc 83.6 eGFR > 60 BUN/Creatinine Ratio 13 Glucose 104 Calculated Osmolality 281 Calcium 8.5 Phosphorus 2.2 L Magnesium 1.9 Assessment & Plan Problem List (1) TIA (transient ischemic attack): Status: Acute Assessment and plan: Reassurance given to the patient regarding the workup results. Patient is advised to continue with aspirin and Plavix for 90 days as the vertebral circulation is compromised. Continue with aggressive medical management with statin. Patient is stable for discharge from neurology standpoint.
== END 2025-01-30 16:05 | disposition home or self-care (01) | DRG 69 ==
LOC: SERX 01-29 05:32 → SERHOLD 01-29 05:42 → S3NX 01-29 09:47
PROVIDERS: Admitting Provider Student in an Organized Health Care Education/Training Program; Emergency Provider Emergency Medicine; PCP Family Medicine; Visit Provider Student in an Organized Health Care Education/Training Program
DX: G45.9 Transient cerebral ischemic attack, unspecified (principal); I16.1 Hypertensive emergency; R53.1 Weakness; E03.9 Hypothyroidism, unspecified; I10 Essential (primary) hypertension; I49.3 Ventricular premature depolarization; M54.50 Low back pain, unspecified; G89.29 Other chronic pain; Z96.641 Presence of right artificial hip joint; Z96.651 Presence of right artificial knee joint; I35.8 Other nonrheumatic aortic valve disorders; Z79.890 Hormone replacement therapy; J45.909 Unspecified asthma, uncomplicated; Z86.73 Personal history of transient ischemic attack (TIA), and cerebral infarction without residual deficits; I27.20 Pulmonary hypertension, unspecified; Z66 Do not resuscitate; Z79.82 Long term (current) use of aspirin; Z79.899 Other long term (current) drug therapy; Z90.5 Acquired absence of kidney
CPT/HCPCS: 36415; 70450; 70496; 70498; 70553; 71045; 80048; 80053; 80061; 80307; 81001; 83036; 83735; 84100; 84443; 84484; 85025; 85610; 85730; 92610; 93005; 93225; 93306; 96361; 96372; 96374; 96375; 96376; 97162; 99285; A4649; J0360; J1644; J3475; J3490; J7030; Q9967; A9270; J1920

== ENCOUNTER → 2025-03-11 | Outpatient (CLI) | payer MEDICARE, BC, SELFPAY ==
[2025-03-11 11:52] LABS: Collection Type, Urine Clean Catch
[2025-03-11 12:30] LABS: Basophils # (Auto) 0.0 Thou/mm3 (0.0-0.2); Basophils % (Auto) 0 % (0-2.5); Eosinophils # (Auto) 0.1 Thou/mm3 (0.0-0.5); Eosinophils % (Auto) 1 % (0-10); Hematocrit 41.9 % (36.0-46.0); Hemoglobin 14.2 g/dL (12.0-16.0); Immature Granulocytes Auto 0.01 Thou/mm3 (0.00-0.00); Lymphocytes # (Auto) 2.3 Thou/mm3 (1.0-4.8); Lymphocytes % (Auto) 31 % (10-50); Mean Corpuscular HGB Conc 33.9 g/dl (31.0-37.0); Mean Corpuscular Hemoglobin 33.2 pg (25.0-35.0); Mean Corpuscular Volume 98 fL (80-100); Monocytes # (Auto) 0.6 Thou/mm3 (0.0-0.8); Monocytes % (Auto) 8 % (0-12); Neutrophils # (Auto) 4.4 Thou/mm3 (1.8-7.7); Neutrophils % (Auto) 59 % (37-80); Nucleated Red Blood Cell # 0.00 Thou/mm3 (0.00-0.00); Nucleated Red Blood Cell % 0 /100 WBC (0); Platelet Count 153 Thou/mm3 (140-440); RDW Standard Deviation 47.4 fL (36.4-46.3); Red Blood Count 4.28 Miln/mm3 (4.00-5.20); White Blood Count 7.4 Thou/mm3 (3.6-11.0)
[2025-03-11 12:35] LABS: Bilirubin,Urine Negative (Negative); Blood,Urine Negative (Negative); Clarity,Urine Clear (Clear/Hazy); Color,Urine Yellow (Lt Yel-Yel); Culture Indicated,Urine Not Indicated; Glucose, Urine Negative (Negative); Hyaline Casts,Urine < 1 /hpf (0-1); Ketones,Urine Negative (Negative); Leukocyte Esterase,Urine Negative (Negative); Nitrite,Urine Negative (Negative); PH,Urine 7.0 (5.0-7.0); Protein,Urine Negative (Neg - Trace); RBC,Urine 1 /hpf (0-3); Specific Gravity,Urine 1.019 (1.001-1.035); Squamous Epithelial Cell,Urine < 1 /hpf (0-5); Urobilinogen,Urine Negative mg/dL (0.0-1.0); WBC,Urine 2 /hpf (0-5)
[2025-03-11 12:44] LABS: Alanine Aminotransferase 25 U/L (10-49); Albumin, Serum 4.3 gm/dL (3.4-4.8); Albumin/Globulin Ratio 1.6 (1.2-2.2); Alkaline Phosphatase 120 U/L (46-116); Anion Gap 9 (7-16); Aspartate Amino Transferase 18 U/L (0-34); BUN/Creatinine Ratio 14 Ratio (12-20); Bilirubin,Total 0.7 mg/dL (0.3-1.2); Blood Urea Nitrogen 11 mg/dL (9-23); Calcium 10.0 mg/dL (8.3-10.6); Calcium (Corrected) 10.0 mg/dL (8.5-10.1); Carbon Dioxide 33.2 mMol/L (20.0-31.0); Cardiac Risk Estimate 2.9 RATIO (3.7-5.6); Chloride 100 mMol/L (98-107); Cholesterol 168 mg/dL (132-200); Creatinine (Component) 0.8 mg/dL (0.6-1.3); Globulin 2.7 gm/dL (2.3-3.5); Glucose 78 mg/dL (74-106); HDL Cholesterol 58 mg/dL (40-60); LDL Cholesterol,Calculated 83 mg/dL (0-130); Osmolality,Calculated 281 (275-295); Potassium 3.6 mMol/L (3.4-5.1); Sodium 142 mMol/L (136-145); Thyroid Stimulating Hormone 2.30 uIU/mL (0.55-4.78); Total Protein 7.0 gm/dL (5.7-8.2); Triglycerides 133 mg/dL (30-150); Vitamin B12 502 pg/mL (211-911); Vitamin D 25 Hydroxy Total 46.2 ng/mL (7.3-40.2); eGFR > 60 See Note
== END | disposition home or self-care (01) ==
LOC: COPL 10:46
PROVIDERS: PCP Family Medicine; Referring Provider Physician Assistant; Visit Provider Physician Assistant
DX: E03.9 Hypothyroidism, unspecified (principal); I10 Essential (primary) hypertension; E78.5 Hyperlipidemia, unspecified; E55.9 Vitamin D deficiency, unspecified
CPT/HCPCS: 36415; 80053; 80061; 81001; 82306; 82607; 84443; 85025

== ENCOUNTER → 2025-03-12 | Outpatient (CLI) | payer MEDICARE, BC, SELFPAY ==
[2025-03-14 06:35] LABS: Fecal Globin Result NOT DETECTED (NOT DETECTED)
== END | disposition home or self-care (01) ==
LOC: SLDO 11:25
PROVIDERS: Referring Provider Physician Assistant; Visit Provider Physician Assistant
DX: E03.9 Hypothyroidism, unspecified (principal); I10 Essential (primary) hypertension; E78.5 Hyperlipidemia, unspecified; E55.9 Vitamin D deficiency, unspecified
CPT/HCPCS: 82274; G0328